=== PATIENT | male | born 1965 | race Hispanic/Latino ===

== ENCOUNTER 2020-06-05 13:30 | Inpatient (IN) | payer BC ==
--- NOTE | 2020-06-05 14:30 | RAD REPORT ---
EXAM DESCRIPTION: RAD - Chest Single View - 06/05/2020 2:22 pm CLINICAL HISTORY: COUGH Chest pain. COMPARISON: CHEST PA AND LAT 2 VIEW dated 08/11/2014; CHEST SINGLE VIEW dated 07/07/2014; CHEST SINGLE VIEW dated 01/03/2010 FINDINGS: Portable technique limits examination quality. Bilateral interstitial prominence is present, greater on the left, suspicious for viral infection or bronchitis. The heart is normal in size.
[2020-06-05 14:47] LABS: Hematocrit 41.5 % (39.6-49.0); MPV 10.3 fL (7.6-11.3); RBC Red Blood Cell Count 4.72 M/uL (4.33-5.43)
[2020-06-05 14:48] LABS: Basophils % 0.5 % (0-1.3)
[2020-06-05 14:51] LABS: Protime INR 1.07
[2020-06-05 15:02] LABS: ALT/SGPT 35 U/L (12-78); AST/SGOT 42 U/L (15-37); Alkaline Phosphatase 61 U/L (45-117); BUN Blood Urea Nitrogen 15 mg/dL (7-18); Bicarbonate 25 mmol/L (21-32); Bilirubin Direct 0.2 mg/dL (0-0.2); Bilirubin Total 0.5 mg/dL (0.2-1.0); Ferritin 926.8 ng/mL (26-388); Glucose Level 101 mg/dL (74-106); Lipase 207 U/L (73-393); Potassium 4.1 mmol/L (3.5-5.1); Protein, Total 7.6 g/dL (6.4-8.2); Sodium Level 132 mmol/L (136-145); Troponin (Emerg Dept Use Only) < 0.02 ng/mL (0.0-0.045)
[2020-06-05 15:16] LABS: Blood Morphology Comment NOT SEEN (NOT SEEN); Platelet Estimate DECR; White Blood Cell Scan OK (OK)
--- NOTE | 2020-06-05 15:39 | RAD REPORT ---
EXAM DESCRIPTION: CT - Chest For Pe Angio - 06/05/2020 3:30 pm CLINICAL HISTORY: Chest pain. DYSPNEA COMPARISON: CTANGIO CHEST FOR PE dated 07/28/2014; Chest Single View dated 06/05/2020 TECHNIQUE: CT angiogram of the pulmonary arteries was performed with MIP. All CT scans are performed using dose optimization technique as appropriate and may include automated exposure control or mA/KV adjustment according to patient size. FINDINGS: No evidence of pulmonary thromboembolism. No acute aortic finding demonstrated. The lungs are mildly emphysematous with moderate alveolar opacities greatest in the lower lobes likel y representing viral infection. No significant pericardial or pleural fluid. Small hiatal hernia. No concerning bony finding. IMPRESSION: No evidence of pulmonary thromboembolism. Alveolar opacities are present in both lungs peripherally in greatest in the lung bases likely relate d to viral infection.
[2020-06-05 16:32] LABS: SARS-COV-2 RT PCR POSITIVE (NEGATIVE)
--- NOTE | 2020-06-05 16:56 | ER ---
Nurse's Notes [facility] Name: Louis Alvares Age: 55 yrs Sex: Male : 1965 Arrival Date: 06/05/2020 Time: 13:36 Bed 7 Private MD: Diagnosis: Coronavirus infection, unspecified;Viral pneumonia, unspecified;hypoxia Presentation: 06/05 13:46 Chief complaint: Patient states: Cough, SOB, body aches, fatigue for 2 days. ll1 Coronavirus screen: Client denies travel out of the [place] in the last 14 days. cough unrelated to allergies, difficulty breathing, fatigue, Client presents with at least one sign or symptom that may indicate coronavirus-19. Standard/surgical mask placed on the client. Ebola Screen: Patient denies travel to an Ebola-affected area in the 21 days before illness onset. Initial Sepsis Screen: Does the patient meet any 2 criteria? No. Patient's initial sepsis screen is negative. Does the patient have a suspected source of infection? Yes: Productive cough/pneumonia. Risk Assessment: Do you want to hurt yourself or someone else? Patient reports no desire to harm self or others. Onset of symptoms was June 04, 2020. 13:46 Method Of Arrival: Ambulatory 1 13:46 Acuity: DELPHINE 2 ll1 14:01 Care prior to arrival: None. jl7 Historical: - Allergies: 13:50 No Known Drug Allergies; ll1 - PMHx: 13:50 High Cholesterol; Hypertension; ll1 - PSHx: 13:50 heart procedure-stent; ll1 - Immunization history:: Flu vaccine is not up to date. - Social history:: Smoking status: Patient/guardian denies using tobacco, Stopped _ months ago 6. Screenin:10 Abuse screen: Denies threats or abuse. Denies injuries from another. Nutritional hb screening: No deficits noted. Tuberculosis screening: No symptoms or risk factors identified. Fall Risk None identified. Assessment: 14:00 General: Appears in no apparent distress. uncomfortable, Behavior is calm, cooperative, jl7 appropriate for age. Pain: Denies pain. Neuro: Level of Consciousness is awake, alert, obeys commands, Oriented to person, place, time, situation. Cardiovascular: Rhythm is sinus rhythm. Respiratory: Airway is patent Respiratory effort is even, unlabored, Respiratory pattern is regular, symmetrical, Not auscultated. Derm: Skin is pink, warm \T\ dry. 15:00 Reassessment: Patient appears in no apparent distress at this time. No changes from hb previously documented assessment. Patient and/or family updated on plan of care and expected duration. Pain level reassessed. 16:00 Reassessment: Patient appears in no apparent distress at this time. No changes from hb previously documented assessment. Patient and/or family updated on plan of care and expected duration. Pain level reassessed. 17:32 Reassessment: Patient appears in no apparent distress at this time. No changes from hb previously documented assessment. Patient and/or family updated on plan of care and expected duration. Pain level reassessed. 18:28 Reassessment: Patient appears in no apparent distress at this time. No changes from hb previously documented assessment. Patient and/or family updated on plan of care and expected duration. Pain level reassessed. Vital Signs: 13:46 BP 130 / 77; Pulse 100; Resp 20; Temp 99.8; Pulse Ox 93% on R/A; Weight 83.91 kg; ll1 Height 5 ft. 5 in. (165.10 cm); Pain 7/10; 14:10 Pulse Ox 87% on R/A; hb 14:35 BP 106 / 66; Pulse 91; Resp 26; Pulse Ox 93% 2 lpm ; jl7 16:30 BP 104 / 66; Pulse 88; Resp 23; Pulse Ox 94% on 2 lpm NC; hb 17:20 BP 100 / 65; Pulse 83; Resp 25; Pulse Ox 94% on 2 lpm NC; hb 18:29 BP 112 / 66; Pulse 80; Resp 26; Pulse Ox 95% on 3 lpm NC; hb 19:20 BP 107 / 65; Pulse 95; Resp 18; Pulse Ox 100% on R/A; ea 13:46 Body Mass Index 30.79 (83.91 kg, 165.10 cm) ll1 13:46 o2 sat. 88-93% RA ll1 ED Course: 13:36 Patient arrived in ED. mr 13:49 Triage completed. ll1 13:51 Arm band placed on Patient placed in an exam room, on a stretcher. ll1 13:54 Stacey Saleem FNP-C is [facility]. kb 13:54 Narendra Self MD is Attending Physician. kb 14:00 Patient has correct armband on for positive identification. Placed in gown. Bed in low jl7 position. Call light in reach. Side rails up X 1. threat monitoring analyst on. Pulse ox on. NIBP on. 14:01 Jaguar Steele, RN is Primary Nurse. jl7 14:17 Chest Single View XRAY In Process Unspecified. EDMS 14:20 First set of blood cultures drawn by me, EKG done, by ED staff, reviewed by Stacey EVANS. 14:25 COVID swab sent to lab. jl7 14:28 Initial lab(s) drawn, by me, sent to lab. Second set of blood cultures drawn by me. jl7 14:30 Inserted saline lock: 20 gauge in right antecubital area, using aseptic technique. hb Blood collected. 15:30 CT Chest For PE Angio In Process Unspecified. EDMS 16:55 Ricardo Gonzalez MD is Hospitalizing Provider. kb 19:14 No provider procedures requiring assistance completed. Patient admitted, IV remains in ea place. 19:39 Primary Nurse role handed off by Jaguar Steele, RN mw2 Administered Medications: No medications were administered Outcome: 16:55 Decision to Hospitalize by Provider. kb 19:14 Condition: stable ea 19:14 Instructed on the need for admit, Demonstrated understanding of instructions, follow-up care. 19:44 Patient left the ED. mg2 Signatures: Dispatcher [employer] EDTN Stacey Saleem FNP-C FNP-Adilson Adrianne Cerrato Pilar Lopes, RN RN Jaguar Steele, RN [facility] [email or web address] Li Amaro RN RN Rosanna Arteaga mw2 Josue Davis RN RN mg2 Sonya Patterson RN RN ll1
--- NOTE | 2020-06-05 16:56 | EDPHYS ---
Physician Documentation [facility] Name: Louis Alvares Age: 55 yrs Sex: Male : 1965 Arrival Date: 06/05/2020 Time: 13:36 Bed 7 Private MD: ED Physician Narendra Self HPI: 06/05 17:03 This 55 yrs old Male presents to ER via Ambulatory with complaints of kb Shortness Of Breath. 17:03 The patient or guardian reports cough, that is intermittent, described as moderate, kb with no sputum, flu symptoms, low-grade fever, myalgias. Onset: The symptoms/episode began/occurred 3 day(s) ago. Severity of symptoms: At their worst the symptoms were moderate, in the emergency department the symptoms are unchanged. Modifying factors: The symptoms are alleviated by nothing, the symptoms are aggravated by nothing. Associated signs and symptoms: Pertinent positives: fever, Pertinent negatives: chest pain, diarrhea, ear ache, nausea, rhinorrhea, sore throat, vomiting. The patient has not experienced similar symptoms in the past. The patient has not recently seen a physician. Pt reports he was at work and the patient safety sitter made him come to the ER because he had covid symptoms. Pt reports cough, fever, chills and body aches for 3 days. . Historical: - Allergies: 13:50 No Known Drug Allergies; ll1 - PMHx: 13:50 High Cholesterol; Hypertension; ll1 - PSHx: 13:50 heart procedure-stent; ll1 - Immunization history:: Flu vaccine is not up to date. - Social history:: Smoking status: Patient/guardian denies using tobacco, Stopped _ months ago 6. ROS: 17:02 Cardiovascular: Negative for chest pain, palpitations, and edema, Abdomen/GI: Negative kb for abdominal pain, nausea, vomiting, diarrhea, and constipation, Back: Negative for injury and pain, MS/Extremity: Negative for injury and deformity, Skin: Negative for injury, rash, and discoloration, Neuro: Negative for headache, weakness, numbness, tingling, and seizure. 17:02 Constitutional: Positive for body aches, chills, fever, malaise. 17:02 Respiratory: Positive for cough. Exam: 17:03 Constitutional: This is a well developed, well nourished patient who is awake, alert, kb and in no acute distress. Head/Face: Normocephalic, atraumatic. Chest/axilla: Normal chest wall appearance and motion. Nontender with no deformity. No lesions are appreciated. Cardiovascular: Regular rate and rhythm with a normal S1 and S2. No gallops, murmurs, or rubs. Normal PMI, no JVD. No pulse deficits. Respiratory: Lungs have equal breath sounds bilaterally, clear to auscultation and percussion. No rales, rhonchi or wheezes noted. No increased work of breathing, no retractions or nasal flaring. Abdomen/GI: Soft, non-tender, with normal bowel sounds. No distension or tympany. No guarding or rebound. No evidence of tenderness throughout. Skin: Warm, dry with normal turgor. Normal color with no rashes, no lesions, and no evidence of cellulitis. MS/ Extremity: Pulses equal, no cyanosis. Neurovascular intact. Full, normal range of motion. Neuro: Awake and alert, GCS 15, oriented to person, place, time, and situation. Cranial nerves II-XII grossly intact. Motor strength 5/5 in all extremities. Sensory grossly intact. Cerebellar exam normal. Normal gait. Vital Signs: 13:46 BP 130 / 77; Pulse 100; Resp 20; Temp 99.8; Pulse Ox 93% on R/A; Weight 83.91 kg; ll1 Height 5 ft. 5 in. (165.10 cm); Pain 7/10; 14:10 Pulse Ox 87% on R/A; hb 14:35 BP 106 / 66; Pulse 91; Resp 26; Pulse Ox 93% 2 lpm ; jl7 16:30 BP 104 / 66; Pulse 88; Resp 23; Pulse Ox 94% on 2 lpm NC; hb 17:20 BP 100 / 65; Pulse 83; Resp 25; Pulse Ox 94% on 2 lpm NC; hb 18:29 BP 112 / 66; Pulse 80; Resp 26; Pulse Ox 95% on 3 lpm NC; hb 19:20 BP 107 / 65; Pulse 95; Resp 18; Pulse Ox 100% on R/A; ea 13:46 Body Mass Index 30.79 (83.91 kg, 165.10 cm) ll1 13:46 o2 sat. 88-93% RA ll1 MDM: 13:54 Patient medically screened. kb 16:59 Data reviewed: vital signs, nurses notes. Data interpreted: Pulse oximetry: on room air kb is 87 %. Interpretation: hypoxia. Plan: O2 by NC applied. Counseling: I had a detailed discussion with the patient and/or guardian regarding: the historical points, exam findings, and any diagnostic results supporting the discharge/admit diagnosis, lab results, radiology results, the need for further work-up and treatment in the hospital. Physician consultation: Ricardo Gonzalez MD was contacted at 17:00, regarding admission, to the telemetry unit. patient's condition, and will see patient in ED. 06/05 14:09 Order name: Flu kb 06/05 14:20 Order name: Troponin (emerg Dept Use Only) kb 06/05 14:20 Order name: Blood Culture Adult (2) kb 06/05 14:20 Order name: BMP kb 06/05 14:20 Order name: C-Reactive Protein kb 06/05 14:20 Order name: CBC with Diff kb 06/05 14:20 Order name: D-Dimer; Complete Time: 14:53 kb 06/05 14:20 Order name: Ferritin; Complete Time: 15:05 kb 06/05 14:20 Order name: Lactate; Complete Time: 15:05 kb 06/05 14:20 Order name: LFT's; Complete Time: 15:05 kb 06/05 14:20 Order name: Lipase; Complete Time: 15:05 kb 06/05 14:20 Order name: Procalcitonin; Complete Time: 16:08 kb 06/05 14:20 Order name: PT-INR; Complete Time: 14:53 kb 06/05 14:20 Order name: Ptt, Activated; Complete Time: 14:53 kb 06/05 14:20 Order name: Troponin (Emerg Dept Use Only); Complete Time: 15:05 EDMS 06/05 14:20 Order name: Blood Culture EDMS 06/05 14:20 Order name: Basic Metabolic Panel; Complete Time: 15:05 EDMS 06/05 14:20 Order name: C-Reactive Protein; Complete Time: 15:05 EDMS 06/05 14:20 Order name: CBC with Automated Diff; Complete Time: 15:24 EDMS 06/05 14:40 Order name: Glucose, Ancillary Testing EDMS 02/12 15:16 Order name: CBC Smear Scan; Complete Time: 15:24 EDID 06/05 16:32 Order name: COVID-19/FLU A+B; Complete Time: 16:37 EDID 06/05 17:05 Order name: C-Reactive Protein EDID 06/05 17:05 Order name: C-Reactive Protein EDID 06/05 17:05 Order name: CBC with Automated Diff EDID 06/05 17:05 Order name: CBC with Automated Diff EDID 06/05 17:05 Order name: Comprehensive Metabolic Panel EDID 06/05 17:05 Order name: Comprehensive Metabolic Panel EDID 06/05 17:05 Order name: Ferritin EDID 06/05 14:09 Order name: Chest Single View XRAY; Complete Time: 14:32 kb 06/05 14:20 Order name: EKG; Complete Time: 14:21 kb 06/05 14:20 Order name: Cardiac monitoring; Complete Time: 14:34 kb 06/05 14:20 Order name: Droplet/Contact Precautions; Complete Time: 14:34 kb 06/05 14:20 Order name: EKG - Nurse/Tech; Complete Time: 14:34 kb 06/05 14:20 Order name: IV Start; Complete Time: 14:34 kb 06/05 14:20 Order name: Labs collected and sent; Complete Time: 14:35 kb 06/05 14:20 Order name: O2 Per Protocol; Complete Time: 14:35 kb 06/05 14:20 Order name: O2 Sat Monitoring; Complete Time: 14:35 kb 06/05 14:55 Order name: CT Chest For PE Angio; Complete Time: 15:50 kb 06/05 17:05 Order name: CONS Pharmacy Consult [facility] 06/05 17:05 Order name: Heart Healthy EDID 06/05 17:05 Order name: Ferritin EDID 06/05 17:05 Order name: Lipid Profile EDID 06/05 17:05 Order name: Lipid Profile [facility] Administered Medications: No medications were administered Disposition: 06/05/20 16:55 Hospitalization ordered by Ricardo Gonzalez for Observation. Preliminary diagnosis are Coronavirus infection, unspecified, Viral pneumonia, unspecified, hypoxia. - Bed requested for Telemetry/MedSurg (observation). - Status is Observation. mg2 - Condition is Stable. - Problem is new. - Symptoms are unchanged. Addendum: 06/07/2020 14:34 Co-signature as Attending Physician, Narendra Self MD I agree with the assessment and k dr plan of care. Signatures: Dispatcher [employer] EDID Stacey Saleem, LEIF-Aureliano PHYSICAL ANTHROPOLOGIST-CkDolly Fu, RN RN dw Narendra Self MD MD [facility] Josue Davis RN RN mg2 Sonya Patterson RN RN ll1 Corrections: (The following items were deleted from the chart) 06/05 15:31 14:10 CORONAVIRUS+MR.LAB.BRZ ordered. [facility] EDID 18:22 16:55 Hospitalization Ordered by Ricardo Gonzalez MD for Observation. Preliminary dw diagnosis is Coronavirus infection, unspecified; Viral pneumonia, unspecified; hypoxia. Bed requested for Telemetry/MedSurg (observation). Status is Observation. Condition is Stable. Problem is new. Symptoms are unchanged. kb 19:44 18:22 06/05/2020 16:55 Hospitalization Ordered by Ricardo Gonzalez MD for Observation. mg2 Preliminary diagnosis is Coronavirus infection, unspecified; Viral pneumonia, unspecified; hypoxia. Bed requested for Telemetry/MedSurg (observation). Status is Observation. Condition is Stable. Problem is new. Symptoms are unchanged. dw
[2020-06-05] MEDS ORDERED: ACETAMINOPHEN 500 MG TAB PO PRN (16:58)
[2020-06-05] MEDS ORDERED: MORPHINE 2 MG/ML SYR IV PRN (16:58)
[2020-06-05] MEDS ORDERED: ONDANSETRON 4 MG/2 ML VIAL IV PRN (16:58)
[2020-06-05 20:45] VITALS: BMI 33.0
[2020-06-05] MEDS: ATORVASTATIN 80 MG TAB PO SCH (21:45)
[2020-06-05] MEDS: NA CHLORIDE 0.9% 1,000 ML IV SCH (21:45)
[2020-06-05] MEDS: APIXABAN 5 MG TABLET PO SCH (21:46)
[2020-06-05] MEDS: carvediloL 3.125 MG TAB PO SCH (21:46)
[2020-06-06] MEDS: METHYLPREDNISOLONE 125 MG INJ IV SCH ×3 (00:56→16:16)
[2020-06-06 04:09] LABS: Absolute Lymphocytes (CBC) 0.7 K/uL (0.7-4.9); Basophils % 0.3 % (0-1.3); Lymphocytes % 9.4 % (15.3-44.8); MPV 9.9 fL (7.6-11.3); RBC Red Blood Cell Count 4.61 M/uL (4.33-5.43)
[2020-06-06 04:57] LABS: ALT/SGPT 29 U/L (12-78); AST/SGOT 41 U/L (15-37); Albumin 2.7 g/dL (3.4-5.0); Alkaline Phosphatase 59 U/L (45-117); BUN Blood Urea Nitrogen 14 mg/dL (7-18); Bicarbonate 24 mmol/L (21-32); Bilirubin Total 0.6 mg/dL (0.2-1.0); Ferritin 1108.4 ng/mL (26-388); Glucose Level 100 mg/dL (74-106); HDL Cholesterol 40 mg/dL (40-60); LDL Cholesterol, Calculated 104 (<130); Potassium 4.7 mmol/L (3.5-5.1); Protein, Total 7.3 g/dL (6.4-8.2); Sodium Level 136 mmol/L (136-145)
[2020-06-06] MEDS: APIXABAN 5 MG TABLET PO SCH (08:12)
[2020-06-06] MEDS: ASPIRIN EC 81 MG TAB PO SCH (08:13)
[2020-06-06] MEDS: CLOPIDOGREL 75 MG TABLET PO SCH (08:13)
[2020-06-06] MEDS: lisinopriL 5 MG TAB PO SCH (08:13)
[2020-06-06] MEDS: carvediloL 3.125 MG TAB PO SCH ×2 (08:13→20:58)
[2020-06-06] MEDS: NA CHLORIDE 0.9% 1,000 ML IV SCH (08:14)
--- NOTE | 2020-06-06 09:14 | P.HP ---
Certification for Inpatient Patient admitted to: Inpatient With expected LOS: >2 Midnights Patient will require the following post-hospital care: None Practitioner: I am a practitioner with admitting privileges, knowledge of patient current condition, hospital course, and medical plan of care. Services: Services provided to patient in accordance with Admission requirements found in Title 42 Section 412.3 of the Code of Federal Regulations Patient History Date of Service: 06/05/20 Reason for admission: Hypoxemia History of Present Illness: Patient is a 55-year-old gentleman who came to the hospital with from his work because he was having upper respiratory symptoms. They wanted him to go to the emergency room. In the emergency room he was found have COVID-19 pneumonia. Patient was admitted to the hospital for further treatment as is room her oxygenation was 80% on room air. On 2 L he has gone up to 95%. He did have a CT PE protocol which was negative for pulmonary embolism but did show diffuse infiltrates. Patient will be admitted to the hospital for further evaluation. Allergies No Known Drug Allergies Allergy (Verified 07/28/14 06:24) Unknown Home Medications: Aspirin [Aspirin EC 81 MG] 81 mg PO DAILY 07/28/14 Atorvastatin Calcium [Lipitor] 80 mg PO BEDTIME 07/28/14 Clopidogrel Bisulfate [Plavix] 75 mg PO DAILY 07/28/14 carvediloL [Coreg*] 3.125 mg PO BID 07/28/14 lisinopriL [Prinivil*] 5 mg PO DAILY 07/28/14 Azithromycin [Zithromax] 500 mg PO DAILY #7 tablet 07/29/14 Fluticasone/Salmeterol [Advair 250/50 Diskus] 1 puff IH BID #1 disk 07/29/14 predniSONE [Deltasone] 10 mg PO BID #20 tab 07/29/14 - Past Medical/Surgical History Diabetic: No -: Hypertension Past Surgical History: Patient denies surgical history - Family History Mother Medical History: Heart disease, Cancer Father Medical History: Heart disease, Hypertension, Diabetes - Social History Smoking Status: Former smoker Alcohol use: No CD- Drugs: No Caffeine use: Yes Place of Residence: Home Review of Systems 10-point ROS is otherwise unremarkable Physical Examination - Vital Signs Temperature: 97.3 F Blood Pressure: 90/62 Pulse: 72 Respirations: 16 Pulse Ox (%): 96 - Physical Exam General: Alert, In no apparent distress, Oriented x3 HEENT: Atraumatic, PERRLA, Mucous membr. moist/pink, EOMI, Sclerae nonicteric Neck: Supple, 2+ carotid pulse no bruit, No LAD, Without JVD or thyroid abnormality Respiratory: Diminished, Rhonchi/gurgles Cardiovascular: Regular rate/rhythm, Normal S1 S2, No murmurs Gastrointestinal: Normal bowel sounds, Soft and benign, Non-distended, No tenderness Musculoskeletal: No clubbing, No swelling, No tenderness Integumentary: No rashes Neurological: Normal gait, Normal speech, Normal strength at 5/5 x4 extr, Normal tone, Sensation intact, Cranial nerves 3-12 intact, Normal affect Lymphatics: No axilla or inguinal lymphadenopathy - Studies Laboratory Data (last 24 hrs) 06/05/20 14:29: PT 12.3, INR 1.07, APTT 26.6 06/05/20 14:29: WBC 6.30, Hgb 13.9, Hct 41.5, Plt Count 66 L 06/05/20 14:29: Sodium 132 L, Potassium 4.1, BUN 15, Creatinine 0.91, Glucose 101, Total Bilirubin 0.5, AST 42 H, ALT 35, Alkaline Phosphatase 61, Lipase 207 Assessment & Plan - Problems (Diagnosis) (1) Pneumonia due to COVID-19 virus Current Visit: Yes Status: Acute (2) Hypoxemia Current Visit: Yes Status: Acute (3) History of hypertension Current Visit: Yes Status: Acute - Plan 1. Continue with IV steroids 2. Check room air oxygenation daily 3. Repeat labs including D-dimer, ferritin, and CRP and LFTs 4. O2 per protocol 5. Continue with albuterol inhaler therapy; IV dexamethasone; zinc and vitamin-C 6. O2 per protocol 7. GI and DVT prophylaxis Discharge Plan: Home Plan to discharge in: Greater than 2 days - Advance Directives Does patient have a Living Will: No Does patient have a Durable POA for Healthcare: No - Code Status/Comfort Care Code Status Assessed: Yes Code Status: Full Code Critical Care: No Time Spent Managing PTS Care (In Minutes): 45
--- NOTE | 2020-06-06 09:18 | P.PN ---
Subjective Date of Service: 06/05/20 Patient is clinically doing better. Will arrange for a room air oxygen monitoring and then arrange for home oxygen prior to discharging possibly today or tomorrow Review of Systems 10-point ROS is otherwise unremarkable Physical Examination - Vital Signs Temperature: 97.3 F Blood Pressure: 90/62 Pulse: 72 Respirations: 16 Pulse Ox (%): 96 - Physical Exam General: Alert, In no apparent distress HEENT: Atraumatic, PERRLA, EOMI Neck: Supple, JVD not distended Respiratory: Clear to auscultation bilaterally, Normal air movement Cardiovascular: Regular rate/rhythm, Normal S1 S2 Gastrointestinal: Normal bowel sounds, No tenderness Musculoskeletal: No tenderness Integumentary: No rashes Neurological: Normal speech, Normal tone, Normal affect Lymphatics: No axilla or inguinal lymphadenopathy - Studies Laboratory Data (last 24 hrs) 06/05/20 14:29: PT 12.3, INR 1.07, APTT 26.6 06/05/20 14:29: WBC 6.30, Hgb 13.9, Hct 41.5, Plt Count 66 L 06/05/20 14:29: Sodium 132 L, Potassium 4.1, BUN 15, Creatinine 0.91, Glucose 101, Total Bilirubin 0.5, AST 42 H, ALT 35, Alkaline Phosphatase 61, Lipase 207 Medications List Reviewed: Yes Assessment & Plan - Problems (Diagnosis) (1) Pneumonia due to COVID-19 virus Current Visit: Yes Status: Acute (2) Hypoxemia Current Visit: Yes Status: Acute (3) History of hypertension Current Visit: Yes Status: Acute - Plan 1. Continue with IV steroids 2. Check room air oxygenation daily 3. Repeat labs including D-dimer, ferritin, and CRP and LFTs 4. O2 per protocol 5. Continue with albuterol inhaler therapy; IV dexamethasone; zinc and vitamin-C 6. O2 per protocol 7. GI and DVT prophylaxis - Advance Directives Does patient have a Living Will: No Does patient have a Durable POA for Healthcare: No - Code Status/Comfort Care Code Status: Full Code
[2020-06-06] MEDS: ATORVASTATIN 80 MG TAB PO SCH (20:58)
[2020-06-07] MEDS: NA CHLORIDE 0.9% 1,000 ML IV SCH ×2 (00:13→11:01)
[2020-06-07] MEDS: METHYLPREDNISOLONE 125 MG INJ IV SCH ×3 (00:14→17:18)
--- NOTE | 2020-06-07 07:55 | EKG ---
Test Date: 2020-06-05 Test Time: 14:28:10 Laryngologist: JESSE MEASUREMENT RESULTS: Intervals: Rate: 91 TN: 134 QRSD: 90 QT: 340 QTc: 418 Sperry: P: 35 TN: 134 QRS: 249 T: 34 INTERPRETIVE STATEMENTS: Normal sinus rhythm Right superior axis deviation Low voltage QRS Cannot rule out Anteroseptal infarct, age undetermined Abnormal ECG Compared to ECG 07/27/2014 23:50:23 Right superior axis now present Low QRS voltage now present T-wave abnormality no longer present Possible ischemia no longer present Myocardial infarct finding still present Electronically Signed On 06-07-20 07:53:16 BUNDLER by Segundo Rivera
[2020-06-07 08:34] VITALS: O2SAT 90
[2020-06-07] MEDS: lisinopriL 5 MG TAB PO SCH (08:36)
[2020-06-07] MEDS: CLOPIDOGREL 75 MG TABLET PO SCH (08:36)
[2020-06-07] MEDS: carvediloL 3.125 MG TAB PO SCH (08:36)
[2020-06-07] MEDS: ASPIRIN EC 81 MG TAB PO SCH (08:36)
[2020-06-07 15:03] LABS: Absolute Lymphocytes (CBC) 1.1 K/uL (0.7-4.9); Basophils % 0.1 % (0-1.3); Hematocrit 40.9 % (39.6-49.0); Lymphocytes % 8.1 % (15.3-44.8); MPV 10.9 fL (7.6-11.3); RBC Red Blood Cell Count 4.59 M/uL (4.33-5.43)
[2020-06-07 15:28] LABS: BUN Blood Urea Nitrogen 19 mg/dL (7-18); Bicarbonate 23 mmol/L (21-32); Glucose Level 194 mg/dL (74-106); Potassium 4.4 mmol/L (3.5-5.1); Sodium Level 139 mmol/L (136-145)
[2020-06-22 05:53] VITALS: BP 90/62; TEMP 97.3
--- NOTE | 2020-06-22 05:53 | P.DS ---
Discharge Date: 06/07/20 Disposition: ROUTINE DISCHARGE Discharge Condition: GOOD Reason for Admission: Hypoxemia Consultations: Pulmonary - Problems (1) Pneumonia due to COVID-19 virus Status: Acute (2) Hypoxemia Status: Acute (3) History of hypertension Status: Acute Brief History of Present Illness: Patient is a 55-year-old gentleman who came to the hospital with from his work because he was having upper respiratory symptoms. They wanted him to go to the emergency room. In the emergency room he was found have COVID-19 pneumonia. Patient was admitted to the hospital for further treatment as is room her oxygenation was 80% on room air. On 2 L he has gone up to 95%. He did have a CT PE protocol which was negative for pulmonary embolism but did show diffuse infiltrates. Patient will be admitted to the hospital for further evaluation. Hospital Course: Patient was admitted to the hospital over the last 4-5 days. Patient is clinically doing better. At this time, patient is stable for discharge on prednisone, azithromycin, inhaler therapy, and cough medication. Follow with pulmonary in 1-2 weeks. Vital Signs/Physical Exam: Temp Pulse Resp BP Pulse Ox 98 F 57 20 102/60 92 06/07/20 12:00 06/07/20 12:00 06/07/20 12:00 06/07/20 12:00 06/07/20 12:00 General: Alert, In no apparent distress, Oriented x3 Laboratory Data at Discharge: WBC 13.10 K/uL (4.3-10.9) H D 06/07/20 14:43 Hgb 13.3 g/dL (13.6-17.9) L 06/07/20 14:43 Hct 40.9 % (39.6-49.0) 06/07/20 14:43 Plt Count 125 K/uL (152-406) L D 06/07/20 14:43 PT 12.3 SECONDS (9.5-12.5) 06/05/20 14:29 INR 1.07 06/05/20 14:29 APTT 26.6 SECONDS (24.3-36.9) 06/05/20 14:29 Sodium 139 mmol/L (136-145) 06/07/20 14:43 Potassium 4.4 mmol/L (3.5-5.1) 06/07/20 14:43 BUN 19 mg/dL (7-18) H 06/07/20 14:43 Creatinine 0.83 mg/dL (0.55-1.3) 06/07/20 14:43 Glucose 194 mg/dL (74-106) H 06/07/20 14:43 Total Bilirubin 0.6 mg/dL (0.2-1.0) 06/06/20 03:49 AST 41 U/L (15-37) H 06/06/20 03:49 ALT 29 U/L (12-78) 06/06/20 03:49 Alkaline Phosphatase 59 U/L (45-117) 06/06/20 03:49 Triglycerides 186 mg/dL (<150) H 06/06/20 03:49 Cholesterol 181 mg/dL (<200) 06/06/20 03:49 HDL Cholesterol 40 mg/dL (40-60) 06/06/20 03:49 Cholesterol/HDL Ratio 4.53 06/06/20 03:49 Lipase 207 U/L (73-393) 06/05/20 14:29 Home Medications: Aspirin [Aspirin EC 81 MG] 81 mg PO DAILY 07/28/14 Atorvastatin Calcium [Lipitor] 80 mg PO BEDTIME 07/28/14 Clopidogrel Bisulfate [Plavix] 75 mg PO DAILY 07/28/14 carvediloL [Coreg*] 3.125 mg PO BID 07/28/14 lisinopriL [Prinivil*] 5 mg PO DAILY 07/28/14 Azithromycin [Zithromax] 500 mg PO DAILY #7 tablet 07/29/14 Fluticasone/Salmeterol [Advair 250/50 Diskus*] 1 puff IH BID #1 disk 07/29/14 predniSONE [Prednisone*] 20 mg PO BID #18 tab 06/06/20 Albuterol Inhaler [Ventolin Inhaler*] 2 puff IH Q6H PRN #1 hfa.aer.ad 06/07/20 Benzonatate [Tessalon Perle] 200 mg PO TID PRN #30 cap 06/07/20 Ivermectin 3 mg PO DAILY #12 tablet 06/07/20 New Medications: Ivermectin 3 mg PO DAILY #12 tablet predniSONE [Prednisone*] 20 mg PO BID #18 tab Benzonatate [Tessalon Perle] 200 mg PO TID PRN #30 cap PRN Reason: Cough Albuterol Inhaler [Ventolin Inhaler*] 2 puff IH Q6H PRN #1 hfa.aer.ad PRN Reason: Shortness Of Breath Diet: Regular Activity: Fall precautions Followup: Darian Soriano MD [ACTIVE - CAN ADMIT] - 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
== END 2020-06-07 17:42 | disposition home or self-care (01) | DRG 177 ==
LOC: ER 13:30 → ERHOLD 17:17 → 4TH 19:37
PROVIDERS: ADMIT Hospitalist; ATTEND Hospitalist
DX: U07.1 COVID-19 (principal); J12.82 Pneumonia due to coronavirus disease 2019; I10 Essential (primary) hypertension; Z95.5 Presence of coronary angioplasty implant and graft; Z79.82 Long term (current) use of aspirin; Z79.02 Long term (current) use of antithrombotics/antiplatelets; Z79.52 Long term (current) use of systemic steroids; Z79.899 Other long term (current) drug therapy; Z87.891 Personal history of nicotine dependence
CPT/HCPCS: 0240U; 36415; 71045; 71275; 80048; 80053; 80061; 80076; 82728; 82947; 83605; 83690; 84145; 84484; 85025; 85379; 85610; 85730; 86140; 87040; 93005; 99284; J2930; J7030; Q9967

== ENCOUNTER 2020-08-30 18:55 | Inpatient (IN) | payer BC ==
[2020-08-30] MEDS ORDERED: NA CHLORIDE 0.9% 1,000 ML ONE (20:58)
[2020-08-30] MEDS ORDERED: ONDANSETRON 4 MG/2 ML VIAL ONE (20:58)
[2020-08-30] MEDS ORDERED: MORPHINE 4 MG/ML SYR ONE ×2 (20:58→23:52)
[2020-08-30 21:08] LABS: Absolute Lymphocytes (CBC) 1.8 K/uL (0.7-4.9); Basophils % 0.8 % (0-1.3); Hematocrit 39.6 % (39.6-49.0); Lymphocytes % 13.1 % (15.3-44.8); MPV 8.8 fL (7.6-11.3); RBC Red Blood Cell Count 4.55 M/uL (4.33-5.43)
[2020-08-30 21:20] LABS: ALT/SGPT 32 U/L (12-78); AST/SGOT 18 U/L (15-37); Albumin 3.9 g/dL (3.4-5.0); Alkaline Phosphatase 93 U/L (45-117); BUN Blood Urea Nitrogen 14 mg/dL (7-18); Bicarbonate 27 mmol/L (21-32); Bilirubin Direct 0.1 mg/dL (0-0.2); Bilirubin Total 0.4 mg/dL (0.2-1.0); Glucose Level 131 mg/dL (74-106); Lipase 75 U/L (73-393); Protein, Total 7.9 g/dL (6.4-8.2); Sodium Level 141 mmol/L (136-145)
--- NOTE | 2020-08-30 23:19 | EDPHYS ---
Physician Documentation [facility] Name: Louis Alvares Age: 55 yrs Sex: Male : 1965 Arrival Date: 08/30/2020 Time: 18:56 Bed 26 Private MD: ED Physician Rubio Castro Historical: - Allergies: 08/30 19:55 No Known Allergies; bp - Home Meds: 19:55 None [Active]; bp - PMHx: 19:55 High Cholesterol; Hypertension; [place]; bp - PSHx: 19:55 left hand; heart procedure-stent; bp - Immunization history:: Adult Immunizations up to date. - Social history:: Smoking status: Patient reports the use of cigarette tobacco products, smokes one pack cigarettes per day. Patient/guardian denies using alcohol, street drugs. Vital Signs: 19:53 BP 114 / 76; Pulse 86; Resp 16; Temp 98.3(TE); Pulse Ox 95% on R/A; Weight 83.91 kg bp (R); Height 5 ft. 0 in. (152.40 cm) (R); Pain 10/10; 20:30 BP 108 / 71; Pulse 81; Resp 18; Pulse Ox 97% on R/A; Pain 9/10; lp1 21:30 BP 113 / 76; Pulse 81; Resp 18; Pulse Ox 97% on R/A; lp1 22:30 BP 124 / 84; Pulse 80; Resp 18; Pulse Ox 97% on R/A; lp1 23:30 BP 143 / 83; Pulse 85; Resp 18; Pulse Ox 97% on R/A; lp1 05 00:30 BP 118 / 84; Pulse 91; Resp 18; Pulse Ox 96% on R/A; lp1 01:30 BP 116 / 72; Pulse 90; Resp 18; Temp 99.5(O); Pulse Ox 96% on R/A; lp1 08/30 19:53 Body Mass Index 36.13 (83.91 kg, 152.40 cm) bp MDM: 08/30 22:53 Patient medically screened. 08/30 20:23 Order name: Basic Metabolic Panel 08/30 20:23 Order name: CBC with Diff 08/30 20:23 Order name: Hepatic Function 08/30 20:23 Order name: Lipase tw4 08/30 20:24 Order name: Basic Metabolic Panel; Complete Time: 23:22 EDMS 08/30 23:22 Interpretation: Normal except: CL 108; GLUC 131. tw4 08/30 20:24 Order name: Liver (Hepatic) Function; Complete Time: 23:22 EDMS 08/30 23:23 Interpretation: Normal except: GLOB 4.0; A/G 1.0. 4 08/30 20:24 Order name: CBC with Automated Diff; Complete Time: 23:22 EDMS 08/30 23:24 Interpretation: Normal except: WBC 13.30; HGB 13.2. tw4 08/30 20:24 Order name: Lipase; Complete Time: 23:22 EDMS 08/30 23:24 Interpretation: Within normal limits: LIP 75. 4 08/30 21:30 Order name: CT Abd/Pelvis - IV Contrast Only [facility] 08/30 23:31 Order name: COVID-19 : Document "Date of Symptom Onset" if Symptomatic. [facility] 08/31 01:26 Order name: SARS-COV-2 RT PCR [facility] 08/30 20:23 Order name: IV Saline Lock; Complete Time: 20:54 tw4 08/30 20:23 Order name: Labs collected and sent; Complete Time: 20:54 tw4 Administered Medications: 20:45 Drug: NS 0.9% 1000 ml Route: IV; Rate: 1000 ml; Site: right antecubital; lp1 22:00 Follow up: IV Status: Completed infusion; IV Intake: 1000ml lp1 20:45 Drug: Zofran (Ondansetron) 4 mg Route: IVP; Site: right antecubital; lp1 21:30 Follow up: Response: No adverse reaction lp1 20:45 Drug: morphine 4 mg Route: IVP; Site: right antecubital; lp1 21:30 Follow up: Response: Pain is decreased lp1 23:35 Drug: morphine 4 mg Route: IVP; Site: right antecubital; lp1 08/31 00:47 Follow up: Response: Pain is decreased lp1 08/30 23:35 Drug: Zosyn (piperacillin-tazobactam) 3.375 grams Route: IVPB; Infused Over: 60 mins; lp1 Site: right antecubital; 08/31 00:47 Follow up: IV Status: Completed infusion; IV Intake: 100ml lp1 Disposition: 08/30/20 23:18 Hospitalization ordered by Gene Capellan for Inpatient Admission. Preliminary diagnosis is Acute appendicitis with generalized peritonitis. - Bed requested for [facility] ER HOLD. - Status is Inpatient Admission. aa5 - Condition is Stable. - Problem is new. - Symptoms have improved. Addendum: 09/23/2020 18:38 Addendum: HPI: Pt is a 55 year old male with no significant past medical history comes t w4 to the Ed with compliant of abdominal pain. Pt states that he has had pain in the right side of his abdomen for one hour. pt complains of nausea but no vomiting. Pt denies CP,SOB fever cough chills. Addendum: ROS:Abdomen: Positive for abdominal pain and nausea negative for diarrhea, rectal bleeding Constitutional: neg for fever chills, HEENT: neg sore throat, eye pain visual changes CV: negative for CP HUERTA palpitations all others systems negative except as marked. Addendum: PE: General well developed well nourished male in mild distress and obvious pain HEENT; PEERLA, EOMI Resp: CTA no resp distress CV: RRR, nl S1 S2 Abdomen: tender to palpitation to RLQ no rebound no guarding Ext: nontender no edema. Signatures: Dispatcher [employer] EDMS Billie Butler, RN RN aa5 Dora Vu RN RN lp1 Calin Pak, RN RN Rubio Govea MD MD tw4 Rosanna Arteaga mw2 Corrections: (The following items were deleted from the chart) 08/31 01:32 08/30 23:18 Hospitalization Ordered by Gene Capellna MD for Inpatient Admission. mw2 Preliminary diagnosis is Acute appendicitis with generalized peritonitis. Bed requested for Telemetry/MedSurg (Inpatient). Status is Inpatient Admission. Condition is Stable. Problem is new. Symptoms have improved. 4 08/31 15:55 01:32 08/30/2020 23:18 Hospitalization Ordered by Gene Capellan MD for Inpatient aa5 Admission. Preliminary diagnosis is Acute appendicitis with generalized peritonitis. Bed requested for [facility] ER HOLD. Status is Inpatient Admission. Condition is Stable. Problem is new. Symptoms have improved. mw2
--- NOTE | 2020-08-30 23:19 | ER ---
Nurse's Notes [facility] Name: Louis Alvares Age: 55 yrs Sex: Male : 1965 Arrival Date: 08/30/2020 Time: 18:56 Bed 26 Private MD: Diagnosis: Acute appendicitis with generalized peritonitis Presentation: 08/30 19:53 Chief complaint: Patient states: About an hour ago, I had a strong sudden pain in the bp right lower stomach. It feels like I have a swollen sack in my abdomen. Now it feel like it is spreading through out my stomach. Coronavirus screen: Client denies travel out of the [place] in the last 14 days. At this time, the client does not indicate any symptoms associated with coronavirus-19. Ebola Screen: No symptoms or risks identified at this time. Initial Sepsis Screen: Does the patient meet any 2 criteria? No. Patient's initial sepsis screen is negative. Does the patient have a suspected source of infection? Yes: Acute abdominal pain. Risk Assessment: Do you want to hurt yourself or someone else? Patient reports no desire to harm self or others. Onset of symptoms was August 30, 2020. Transition of care: patient was not received from another setting of care. 19:53 Method Of Arrival: Wheelchair bp 19:53 Acuity: DELPHINE 2 jb4 Historical: - Allergies: 19:55 No Known Allergies; bp - Home Meds: 19:55 None [Active]; bp - PMHx: 19:55 High Cholesterol; Hypertension; [place]; bp - PSHx: 19:55 left hand; heart procedure-stent; bp - Immunization history:: Adult Immunizations up to date. - Social history:: Smoking status: Patient reports the use of cigarette tobacco products, smokes one pack cigarettes per day. Patient/guardian denies using alcohol, street drugs. Screenin:04 Abuse screen: Denies threats or abuse. Denies injuries from another. Nutritional lp1 screening: No deficits noted. Tuberculosis screening: No symptoms or risk factors identified. Fall Risk None identified. Assessment: 20:30 General: Appears uncomfortable, Behavior is appropriate for age. Pain: Complains of lp1 pain in right lower quadrant Pain currently is 9 out of 10 on a pain scale. Quality of pain is described as sharp. Neuro: Level of Consciousness is awake, alert, obeys commands, Oriented to person, place, time, situation. Cardiovascular: Patient's skin is warm and dry. Respiratory: Respiratory effort is even. GI: Abdomen is round Bowel sounds present X 4 quads. Abdomen is tender to palpation in right lower quadrant Reports lower abdominal pain, Patient currently denies diarrhea, vomiting. : No signs and/or symptoms were reported regarding the genitourinary system. Denies burning with urination. EENT: No signs and/or symptoms were reported regarding the EENT system. Derm: Skin is intact, Skin is dry, Skin is normal. Musculoskeletal: No deficits noted. 20:45 Reassessment: Verbal order for NS 1L IV, Morphine 4mg IV, Zofran 4mg IV now. lp1 21:30 Reassessment: Patient reports decrease in pain at this time. lp1 22:30 Reassessment: Patient aware of pending CT results; Reports minimal abdominal pain at lp1 this time. 23:30 Reassessment: Patient is alert, oriented x 3, equal unlabored respirations, skin lp1 warm/dry/pink. Patient reports pain 8/10 on pain scale to RLQ abdomen; Patient aware of plan for admission. 08/31 01:00 Reassessment: Patient resting, eyes closed, respirations even, unlabored;. lp1 Vital Signs: 08/30 19:53 BP 114 / 76; Pulse 86; Resp 16; Temp 98.3(TE); Pulse Ox 95% on R/A; Weight 83.91 kg bp (R); Height 5 ft. 0 in. (152.40 cm) (R); Pain 10/10; 20:30 BP 108 / 71; Pulse 81; Resp 18; Pulse Ox 97% on R/A; Pain 9/10; lp1 21:30 BP 113 / 76; Pulse 81; Resp 18; Pulse Ox 97% on R/A; lp1 22:30 BP 124 / 84; Pulse 80; Resp 18; Pulse Ox 97% on R/A; lp1 23:30 BP 143 / 83; Pulse 85; Resp 18; Pulse Ox 97% on R/A; lp1 08/31 00:30 BP 118 / 84; Pulse 91; Resp 18; Pulse Ox 96% on R/A; lp1 01:30 BP 116 / 72; Pulse 90; Resp 18; Temp 99.5(O); Pulse Ox 96% on R/A; lp1 08/30 19:53 Body Mass Index 36.13 (83.91 kg, 152.40 cm) bp ED Course: 08/30 18:56 Patient arrived in ED. ds1 19:55 Triage completed. bp 19:55 Arm band placed on right wrist. bp 20:24 Rubio Castro MD is Attending Physician. tw4 20:29 Dora Vu RN is Primary Nurse. lp1 20:45 Inserted saline lock: 20 gauge in right antecubital area, using aseptic technique. lp1 Blood collected. 21:04 Patient has correct armband on for positive identification. Placed in gown. Bed in low lp1 position. Call light in reach. Pulse ox on. NIBP on. 22:25 CT Abd/Pelvis - IV Contrast Only In Process Unspecified. EDMS 23:18 Gene Capellan MD is Hospitalizing Provider. tw4 08/31 00:38 No provider procedures requiring assistance completed. Patient admitted, IV remains in lp1 place. Administered Medications: 08/30 20:45 Drug: NS 0.9% 1000 ml Route: IV; Rate: 1000 ml; Site: right antecubital; lp1 22:00 Follow up: IV Status: Completed infusion; IV Intake: 1000ml lp1 20:45 Drug: Zofran (Ondansetron) 4 mg Route: IVP; Site: right antecubital; lp1 21:30 Follow up: Response: No adverse reaction lp1 20:45 Drug: morphine 4 mg Route: IVP; Site: right antecubital; lp1 21:30 Follow up: Response: Pain is decreased lp1 23:35 Drug: morphine 4 mg Route: IVP; Site: right antecubital; lp1 08/31 00:47 Follow up: Response: Pain is decreased lp1 08/30 23:35 Drug: Zosyn (piperacillin-tazobactam) 3.375 grams Route: IVPB; Infused Over: 60 mins; lp1 Site: right antecubital; 08/31 00:47 Follow up: IV Status: Completed infusion; IV Intake: 100ml lp1 Intake: 08/30 22:00 IV: 1000ml; Total: 1000ml. lp1 08/31 00:47 IV: 100ml; Total: 1100ml. lp1 Outcome: 08/30 23:18 Decision to Hospitalize by Provider. tw4 08/31 00:38 Condition: stable lp1 Instructed on the need for admit. 02:00 Admitted to Report called to [facility] lp1 15:55 Patient left the ED. aa5 Signatures: Dispatcher [employer] EDNH Yaritza Espino ds1 Billie Butler RN RN aa5 Dora Vu RN RN lp1 Gene Way RN RN jb4 Calin Pak RN RN Rubio Govea MD MD tw4 Corrections: (The following items were deleted from the chart) 08/30 20:16 19:53 Acuity: DELPHINE 3 bp jb4 08/31 00:39 08/30 23:30 Reassessment: Patient is alert, oriented x 3, equal unlabored respirations, lp1 skin warm/dry/pink. Patient reports pain 8/10 on pain scale to RLQ abdomen lp1
[2020-08-30] MEDS ORDERED: PIPER/TAZO/NS 3.375gm 3.375 GM/100 ML BAG ONE (23:52)
[2020-08-31 02:13] VITALS: BMI 33.5
[2020-08-31] MEDS ORDERED: MORPHINE 4 MG/ML SYR IV ONE (05:39)
[2020-08-31] MEDS ORDERED: MORPHINE 4 MG/ML SYR ONE (06:03)
[2020-08-31] MEDS ORDERED: ROCURONIUM 50 MG/5 ML VIAL IV ONE (06:58)
[2020-08-31] MEDS ORDERED: propofoL 200 MG/20 ML VIAL IV ONE (06:58)
[2020-08-31] MEDS ORDERED: LIDOCAINE 2% MPF 5 ML VIAL ONE (06:58)
[2020-08-31] MEDS ORDERED: MIDAZOLAM HCL 2 MG/2 ML INJ ONE (06:58)
[2020-08-31] MEDS ORDERED: FENTANYL CITR 100 MCG/2 ML ONE ×2 (06:58→08:49)
[2020-08-31] MEDS ORDERED: ONDANSETRON 4 MG/2 ML VIAL ONE ×2 (06:59→10:36)
[2020-08-31] MEDS ORDERED: PIPER/TAZO/NS 3.375gm 3.375 GM/100 ML BAG IV ONE (07:15)
--- NOTE | 2020-08-31 07:15 | P.HP ---
Date of Service: 08/31/20 PC: This 55-year-old male presents to the emergency room with severe right lower quadrant abdominal pain for diagnosis and treatment. HPC: Patient states that is all was been having pain in that right lower quadrant for the last couple years. However left-sided became very severe, could hardly walk with it, and came to the ER for evaluation PMH: Covid in May, hypertension, hypercholesterolemia PSHx: Previous hand surgery SOC: No known allergies SYS REVIEW: Smoker's cough, GI as mentioned above, denies any symptoms O/E wake alert uncomfortable vitals are stable HEENT: Not jaundice Chest: Chest movement equal bilaterally ABD: Tender with guarding in the right lower quadrant LOCO: Intact DATA: The white cell count, CT scan supports clinical diagnosis of acute abdomen with probable appendicitis IMPRESSION: Acute appendicitis PLAN: The operating room for laparoscopic possible open appendectomy. The risks of this procedure have been discussed. The possibility of bleeding, infection, injury to bowel blood vessels and surrounding structures have been described. The possible need for an open and/or further surgeries and procedures was discussed. He understands and wants to proceed.
[2020-08-31] MEDS ORDERED: Ringers Lactate 1,000 ML IV ONE ×2 (07:29→15:36)
[2020-08-31] MEDS ORDERED: Phenylephrine HCl 10 MG/ML 1 ML VIAL ONE (08:05)
[2020-08-31] MEDS: Ringers Lactate 1,000 ML IV ONE ×2 (08:59→09:06)
--- NOTE | 2020-08-31 09:48 | P.OP ---
Preoperative diagnosis: Acute abdomen with appendicitis Postoperative diagnosis: The same with ruptured appendix Primary procedure: Laparoscopic appendectomy Secondary procedure: Mobilization of the cecum Anesthesia: General Estimated blood loss: Less than 20 cc Specimen: 1 appendix, and 1 base of the cecum Operative Technique: The patient brought the operating room and placed supine on the table. After the induction of adequate general endotracheal anesthesia, the area of the abdomen was prepped with a DuraPrep solution, and he was draped in usual aseptic manner. A subumbilical incision was made. This was brought down through the skin and subcutaneous tissue. The Visiport was used to enter the peritoneal cavity and created pneumoperitoneum to approximately 12 mm of mercury. We could see in the right lower quadrant there was evidence of inflammatory change with some thick purulent exudate on top of the omentum. There was 1 area of the purulent material was identified this was aspirated from the surrounding area. We each found there were numerous adhesions of the omentum in the right lower quadrant. Is omentum was were gently mobilize. The fat folds around the ileocecal valve were markedly adherent as well. We finally found a large tubular structure in the posterior portion of the abdomen just at the pelvic brim. This was identified as the appendix itself. The mesentery of the appendix was taken down these electro cautery. We had to trace it from the distal portion proximally. As it approached the cecum there appeared to be a portion of the appendix actually missing. It seemed that the patient may have had a rupture over the last week or so with necrosis of the tissue and corresponding Skylar inflammatory changes. On history the patient did mention he would have been having pain for the last for 5 months. At this point the base of what we had dissected the appendix was reached. There was still some inflammatory tissue plan at the end of the cecum itself. We did not see any opening there was no leakage from the cecum however what we did was grasped the end of the cecum mobilize the cecum medially so that we could sure that we were all the way around it and we did fires a staple line across this to ensure that the appendix orifice and the base the appendix and cecum more sealed. At this point the specimens were placed into an endo-pouch and brought out through the umbilical port site. The chest was turned back towards the right lower quadrant. The area was irrigated with a copious amount of saline solution. The irrigating fluid was aspirated from the peritoneal cavity. The Endo Close was used to approximate the umbilical trocar defect to. 2 absorbable sutures were used to approximate the tissue. At this point the pneumoperitoneum was collapsed, and erin were applied to the skin. He was in a stable condition when sent to the recovery room. Needle sponge instrument count were correct. No drains were placed. Complications: None Transferred to: Recovery Room Condition: Good
[2020-08-31] MEDS ORDERED: KETOROLAC 30 MG/ML INJ ONE (09:55)
[2020-08-31] MEDS: MORPHINE 4 MG/ML SYR ONE ×2 (10:24→10:28)
[2020-08-31] MEDS: MORPHINE 4 MG/ML SYR IV PRN ×2 (11:04→20:13)
--- NOTE | 2020-08-31 11:26 | RAD REPORT ---
EXAM DESCRIPTION: CT - Abdomen Pelvis W Contrast - 08/30/2020 10:25 pm ADDENDUM #1 The coronal and sagittal reconstructions are now available, subsequent to the finalization of the hernán ginal report. Additional findings include: Mild hepatomegaly, measuring 18.9 cm in length. Moderate L5-S1 disc and endplate degenerative changes. Electronically signed by: Vonda Warren MD 08/30/2020 11:23 PM CDT End of Addendum EXAM DESCRIPTION: Abdomen Pelvis W Contrast RadLex: CT ABDOMEN PELVIS WITH IV CONTRAST CLINICAL HISTORY: ABD PAIN. COMPARISON: None. TECHNIQUE: CT of the abdomen and pelvis was performed following intravenous administration of iodina mojgan contrast. Arterial phase images through the abdomen, and portal venous images through the pelvis were obtained. Oral contrast was not administered. Axial, coronal, and sagittal soft tissue window re constructions were created and sent to PACS. This exam was performed according to our departmental dose-optimization program, which includes autom ated exposure control, adjustment of the mA and/or kV according to patient size and/or use of iterati ve reconstruction technique. FINDINGS: Thoracic: No significant abnormality. Hepatobiliary: No concerning hepatic lesion identified. The hepatic and portal veins are patent. The gallbladder is unremarkable. No biliary ductal dilatation. Pancreas: Unremarkable. Spleen: Small calcified granuloma in the superior spleen. Gastrointestinal: Dilated appendix in the right lower quadrant which measures up to 2.2 cm in diamete r. Moderate surrounding fat stranding. No adjacent fluid collections or free fluid. Mild left colonic diverticulosis, with no specific surrounding inflammatory changes. No evidence of bowel obstruction. Adrenals: No abnormality identified in either adrenal gland. Renal: No concerning parenchymal abnormality in either kidney. No hydronephrosis or urolithiasis. Bladder/Reproductive: Unremarkable appearance of the urinary bladder by CT technique. Vascular/Lymphatics: Mildly prominent right lower quadrant lymph node, likely reactive. Abdominal aor ta is normal in caliber. Mild atherosclerosis. The major visceral vessels are patent. Musculoskeletal: No concerning osseous lesion identified. Fluid / peritoneum: No significant free fluid. No free intraperitoneal air identified. IMPRESSION 1. Acute uncomplicated appendicitis. 2. Mild left colonic diverticulosis, with no CT evidence of acute diverticulitis. Electronically signed by: Vonda Warren MD 08/30/2020 10:43 PM CDT Due to temporary technical issues with the PACS/Fluency reporting system, reports are being signed by the in house radiologist without review as a courtesy to ensure prompt reporting. The interpreting r adiologist is fully responsible for the content of the report.
--- NOTE | 2020-08-31 15:09 | P.PN ---
Date of Service: 08/31/20 S: Patient feels better, has more muscle soreness than actual pain. O: Vital signs are stable, A: Stable status post laparoscopic appendectomy P: I discussed his surgical findings with the patient. He may have been sick a little longer than he initially described. Antibiotics today. Encourage patient to sit on a chair, ambulate, use incentive spirometer. Will re-evaluate in a.m..
[2020-08-31] MEDS: Ringers Lactate 1,000 ML IV SCH (15:42)
[2020-08-31] MEDS: METRONIDAZOLE 500mg IVPB 500 MG/100 ML BAG IV SCH (16:17)
[2020-08-31] MEDS ORDERED: PIPER/TAZO/NS 3.375gm 3.375 GM/100 ML BAG IVPB SCH (17:00)
[2020-08-31] MEDS: PIPER/TAZO/NS 3.375gm 3.375 GM/100 ML BAG IVPB SCH (17:30)
[2020-08-31] MEDS: HYDROCODONE/APAP 7.5/325 MG TAB PO PRN (22:30)
[2020-09-01] MEDS: METRONIDAZOLE 500mg IVPB 500 MG/100 ML BAG IV SCH ×3 (00:07→16:43)
[2020-09-01] MEDS: PIPER/TAZO/NS 3.375gm 3.375 GM/100 ML BAG IVPB SCH ×3 (01:10→16:44)
[2020-09-01] MEDS: MORPHINE 4 MG/ML SYR IV PRN ×4 (03:43→22:46)
[2020-09-01] MEDS: HYDROCODONE/APAP 7.5/325 MG TAB PO PRN (06:36)
[2020-09-01] MEDS: Ringers Lactate 1,000 ML IV SCH (12:00)
[2020-09-01] MEDS ORDERED: NA CHLORIDE 0.9% 500 ML IV ONE (12:25)
[2020-09-01] MEDS ORDERED: NA CHLORIDE 0.9% 500 ML ONE (12:51)
[2020-09-01] MEDS: D5.45NS W/KCL 20MEQ 20 MEQ/1,000 ML BAG IV SCH ×2 (13:00→20:33)
[2020-09-01] MEDS ORDERED: MINERAL OIL 30 ML UCUP PO ONE (14:28)
[2020-09-01 14:37] LABS: Albumin 2.7 g/dL (3.4-5.0); Bilirubin Total 0.9 mg/dL (0.2-1.0); Magnesium 1.9 mg/dL (1.8-2.4); Phosphorus 2.3 mg/dL (2.5-4.9); Protein, Total 6.6 g/dL (6.4-8.2)
--- NOTE | 2020-09-01 15:08 | P.PN ---
Date of Service: 09/01/20 S: Patient continues to improve. Has some abdominal distention today. Not much of an appetite. Difficulty voiding and had a be catheterized. O : Vital signs are stable, pain appears to be controlled. A: Patient still appears to have postop ileus P: Encourage patient again out of bed by himself. Use incentive spirometry. I will give this some mineral oil today. Anticipate discharge in the next 48 hr.
[2020-09-01 15:09] LABS: Urine Appearance CLEAR (Clear); Urine Bilirubin NEGATIVE (Negative); Urine Blood NEGATIVE (Negative); Urine Color DK YELLOW (Yellow); Urine Glucose NEGATIVE (Negative); Urine Protein TRACE (Negative); Urine Specific Gravity 1.025 (1.005-1.030); Urine Urobilinogen 0.2 mg/dL (0.2-1.0)
[2020-09-01 15:45] LABS: Absolute Lymphocytes (CBC) 0.8 K/uL (0.7-4.9); Basophils % 0.3 % (0-1.3); Hematocrit 42.3 % (39.6-49.0); Lymphocytes % 6.8 % (15.3-44.8); MPV 8.7 fL (7.6-11.3); RBC Red Blood Cell Count 4.77 M/uL (4.33-5.43)
--- NOTE | 2020-09-01 15:46 | P.PN ---
Subjective Date of Service: 09/01/20 Physical Examination - Vital Signs Temperature: 99 F Blood Pressure: 125/80 Pulse: 120 Respirations: 24 Pulse Ox (%): 90
[2020-09-01 15:57] LABS: Urine Amorphous Sediment 3+ /HPF (NONE SEEN); Urine Bacteria <20 /HPF (NONE SEEN); Urine Mucus 3+ /HPF (NONE SEEN); Urine RBC <5 /HPF (NONE SEEN)
[2020-09-01 16:07] LABS: Ferritin 328.3 ng/mL (26-388)
[2020-09-01 16:21] LABS: Blood Morphology Comment NOT SEEN (NOT SEEN); Platelet Estimate ADEQ
--- NOTE | 2020-09-01 16:59 | RAD REPORT ---
EXAM DESCRIPTION: RAD - Chest Single View - 09/01/2020 4:47 pm CLINICAL HISTORY: COVID(+) SOB COMPARISON: Portable June 05 TECHNIQUE: AP portable chest image was obtained 09/01/2020 4:47 pm . FINDINGS: Lung volumes are very low limiting assessment. Infiltrative changes seen in May are n ot clearly identifiable on the current examination. Failure and volume overload are not suspected. Ca rdiomediastinal silhouette is accentuated by portable technique and low lung volume. No measurable pl eural effusion and no pneumothorax. No acute bony abnormality seen. No acute aortic finding. NG tube is in place. Tip is curled in the proximal stomach. IMPRESSION: NG tube is well positioned in the proximal stomach. Chest portion is limited but no acute cardiopulmonary finding seen.
--- NOTE | 2020-09-01 17:01 | RAD REPORT ---
EXAM DESCRIPTION: RAD - Abdomen 1 View (KUB) - 09/01/2020 4:48 pm CLINICAL HISTORY: abdominal distension/pain Recent diagnosis of appendicitis COMPARISON: No comparisons FINDINGS: NG tube is well positioned, curled in the proximal stomach. Stomach is decompressed. Multiple distended and mildly dilated air-filled small bowel loops are present. Given the recent surg calvin this is most likely ileus. Skin erin are seen in the midline pelvis and right mid abdomen. No suspicious calcifications. No suspicious calcifications. IMPRESSION: Numerous distended and mildly dilated air-filled small bowel loops favored to be ileus o luis miguel bowel obstruction. No free air or pneumatosis. NG tube is well positioned, curled in the proximal stomach.
[2020-09-01] MEDS ORDERED: NA CHLORIDE 0.9% 1,000 ML IV ONE (18:08)
[2020-09-01] MEDS ORDERED: NA CHLORIDE 0.9% 1,000 ML ONE (18:28)
--- NOTE | 2020-09-01 19:44 | P.CNS ---
Date of Consult: 09/01/20 Reason for Consult: Medical management Requesting Physician: Gene Capellan Chief Complaint: Perforated appendicitis History of Present Illness: 55-year-old male with history of hypertension, hyperlipidemia for which he is not currently taking medications for presented to the emergency department on 08/31/2020 and was diagnosed with acute uncomplicated appendicitis. Patient was admitted to the surgical services and was taken to the operating room. During surgery the surgeon noted that it seemed as if the patient may have had a rupture over the course of the last week prior to admission with necrosis of the tissue and corresponding inflammatory changes. Patient with successful laparoscopic appendectomy, was transferred to the intensive care unit. Patient previously tested positive for Cintron virus in May and has not since been tested again. Over the course of the last 24 hr patient noted to have abdominal distension, KUB was obtained which demonstrated prominent ileus pattern, NG tube was inserted and patient did have some relief of abdominal distension/pain. Hospitalist service was consulted for additional support in managing patient. Allergies No Known Drug Allergies Allergy (Verified 07/28/14 06:24) Unknown Home Medications: NK [No Home Meds] 08/31/20 - Past Medical/Surgical History Diabetic: No -: Hypertension in the past not taking any med at the moment -: high cholestrol in the past not taking any med at the moment -: left hand surgery due to accident -: [place] due to high energy drink intake as per patient -: left hand surgery - Family History Mother Medical History: Heart disease, Cancer Father Medical History: Heart disease, Hypertension, Diabetes - Social History Smoking Status: Current every day smoker Alcohol use: No CD- Drugs: No Caffeine use: Yes Place of Residence: Home Review of Systems 10-point ROS is otherwise unremarkable General: Weakness, Malaise Gastrointestinal: Nausea, Abdominal Pain, Distention, Constipation, As per HPI Physical Examination Temp Pulse Resp BP Pulse Ox 98.3 F 126 H 34 H 130/96 H 92 09/01/20 16:00 09/01/20 16:00 09/01/20 16:00 09/01/20 16:00 09/01/20 16:00 General: Alert, In no apparent distress, Oriented x3 HEENT: Atraumatic, Normocephalic, Other (Mucous membranes dry) Neck: Supple Respiratory: Clear to auscultation bilaterally, Diminished Cardiovascular: Regular rate/rhythm (Sinus tachycardia rate around 120), Normal S1 S2 Capillary refill: <2 Seconds Gastrointestinal: Hypoactive, No masses, No rebound, No guarding, Tenderness (Right lower quadrant tenderness noted on exam) Musculoskeletal: No contractures, No erythema, No tenderness Integumentary: No significant lesion, No tenderness/swelling, No erythema Neurological: Normal strength at 5/5 x4 extr, Normal tone, Sensation intact Lymphatics: No axilla or inguinal lymphadenopathy Conclusions/Impression: Assessment Acute perforated appendicitis status post laparoscopic appendectomy complicated with postoperative ileus COVID + Hypertension, hyperlipidemia Plan Acute perforated appendicitis status post laparoscopic appendectomy complicated with postoperative ileus: Patient recently had NGT inserted, NPO. Patient some improvement of abdominal distension after insertion, continue with IV antibiotics, IV fluids, NGT to low intermittent wall suction. Patient given normal saline bolus as he was tachycardic to around 125 and appear dry. Will continue to monitor patient closely, appreciate further input from general surgery. COVID +: Patient tested positive in May, has not had any test since then, unable to determine definitively if this is an acute phase or if he is still testing positive from prior infection. Patient with some small mild oxygen requirement, CRP significantly elevated this is likely related to perforated appendicitis. Will continue to monitor patient's respiratory status closely, steroids only if necessary. Hypertension, hyperlipidemia: Not currently taking any medications, stable. Critical Care: No Time Spent Managing Pts care (In Minutes): 35
[2020-09-01] MEDS ORDERED: ACETAMINOPHEN 650MG/RECT SUPP PR PRN (20:11)
[2020-09-02] MEDS: METRONIDAZOLE 500mg IVPB 500 MG/100 ML BAG IV SCH ×3 (00:05→17:17)
[2020-09-02] MEDS: PIPER/TAZO/NS 3.375gm 3.375 GM/100 ML BAG IVPB SCH ×3 (00:47→17:17)
[2020-09-02] MEDS: MORPHINE 4 MG/ML SYR IV PRN ×3 (05:25→21:46)
[2020-09-02] MEDS ORDERED: MINERAL OIL 30 ML UCUP FT ONE (11:13)
[2020-09-02] MEDS: D5.45NS W/KCL 20MEQ 20 MEQ/1,000 ML BAG IV SCH ×2 (12:08)
--- NOTE | 2020-09-02 14:30 | P.PN ---
Date of Service: 09/02/20 S: Patient has less distention today, status post insertion of a nasogastric tube. Started to feel his stomal trial. Still bowel movements. O: Vital signs are stable. No new lab work to reviewed today. Adequate urine output . Has some hyperactive bowel sounds. A : Continues to improve, postop ileus appears to be resolving. P: Mineral oil via nasogastric tube, anticipate Dc NG tube and Zheng catheter in the a.m.. Will repeat CBC in a.m..
--- NOTE | 2020-09-02 15:45 | P.PN ---
Subjective Date of Service: 09/02/20 Chief Complaint: Perforated appendicitis Subjective: Improving (Still no bowel movement.) Physical Examination - Vital Signs Temperature: 97.9 F Blood Pressure: 124/91 Pulse: 105 Respirations: 22 Pulse Ox (%): 96 Assessment & Plan Discharge Plan: Home Plan to discharge in: 72 Hours Physician Review Additional Text: Physical exam: Patient alert, cooperative Vital signs stable Heart: Regular rate rhythm Lungs: Clear to auscultation Abdomen: Less distention noted. NG tube in place. Extremities: No focal deficits Assessment Acute perforated appendicitis status post laparoscopic appendectomy complicated with postoperative ileus COVID + Hypertension, hyperlipidemia Plan Acute perforated appendicitis status post laparoscopic appendectomy complicated with postoperative ileus: NG tube in place. Patient improved. Patient remains NPO. Continue with low intermittent suction. Continue IV fluids. Monitor the patient closely. Will discuss with General surgery. Anticipate improvement over the next several days. COVID +: Patient tested positive in May, has not had any test since then, unable to determine definitively if this is an acute phase or if he is still testing positive from prior infection. Patient with some small mild oxygen requirement, CRP significantly elevated this is likely related to perforated appendicitis. Will continue to monitor patient's respiratory status closely, steroids only if necessary. Hypertension, hyperlipidemia: Not currently taking any medications, stable. Time Spent Managing Pts Care (In Minutes): 55
[2020-09-03] MEDS: D5.45NS W/KCL 20MEQ 20 MEQ/1,000 ML BAG IV SCH ×3 (00:45→13:00)
[2020-09-03] MEDS: METRONIDAZOLE 500mg IVPB 500 MG/100 ML BAG IV SCH ×3 (00:46→18:06)
[2020-09-03] MEDS: PIPER/TAZO/NS 3.375gm 3.375 GM/100 ML BAG IVPB SCH ×3 (01:39→18:06)
[2020-09-03] MEDS: MORPHINE 4 MG/ML SYR IV PRN ×4 (03:17→22:52)
[2020-09-03 05:26] LABS: Basophils % 0.2 % (0-1.3); Hematocrit 35.7 % (39.6-49.0); Lymphocytes % 7.6 % (15.3-44.8); MPV 9.2 fL (7.6-11.3); RBC Red Blood Cell Count 4.07 M/uL (4.33-5.43)
--- NOTE | 2020-09-03 14:59 | P.PN ---
Subjective Date of Service: 09/03/20 Chief Complaint: Perforated appendicitis Subjective: Improving Physical Examination - Vital Signs Temperature: 98.5 F Blood Pressure: 134/92 Pulse: 95 Respirations: 24 Pulse Ox (%): 98 Assessment & Plan Discharge Plan: Home Plan to discharge in: Greater than 2 days Physician Review Additional Text: Physical exam: Patient alert, cooperative Vital signs stable Heart: Regular rate rhythm Lungs: Clear to auscultation Abdomen: Less distention noted. NG tube in place. Patient reports passage of gas and stool Extremities: No focal deficits Assessment Acute perforated appendicitis status post laparoscopic appendectomy complicated with postoperative ileus COVID + Hypertension, hyperlipidemia Plan Acute perforated appendicitis status post laparoscopic appendectomy complicated with postoperative ileus: Patient reports passage of gas and stool. NG tube in place. Patient continues to improve. Continue IV fluids and antibiotics. Anticipate general surgery to reassess and consider removal of NG tube. DC Zheng catheter. Consider advancement of diet if okay with surgery. Continue DVT prophylaxis. We will continue to monitor closely. Anticipate improvement over the next several days. COVID +: Patient tested positive in May, has not had any test since then, unable to determine definitively if this is an acute phase or if he is still testing positive from prior infection. Patient with some small mild oxygen requirement, CRP significantly elevated this is likely related to perforated appendicitis. Will continue to monitor patient's respiratory status closely, steroids only if necessary. Hypertension, hyperlipidemia: Not currently taking any medications, stable. Time Spent Managing Pts Care (In Minutes): 55
[2020-09-03] MEDS: ENOXAPARIN 40 MG/0.4 ML SQ SCH (18:07)
[2020-09-04] MEDS: D5.45NS W/KCL 20MEQ 20 MEQ/1,000 ML BAG IV SCH ×5 (00:05→23:17)
[2020-09-04] MEDS: METRONIDAZOLE 500mg IVPB 500 MG/100 ML BAG IV SCH ×3 (00:06→16:13)
[2020-09-04] MEDS: PIPER/TAZO/NS 3.375gm 3.375 GM/100 ML BAG IVPB SCH ×3 (00:07→16:13)
[2020-09-04 05:06] LABS: Basophils % 0.4 % (0-1.3); Hematocrit 34.2 % (39.6-49.0); RBC Red Blood Cell Count 3.88 M/uL (4.33-5.43)
[2020-09-04 05:19] LABS: BUN Blood Urea Nitrogen 15 mg/dL (7-18); Bicarbonate 25 mmol/L (21-32); Glucose Level 164 mg/dL (74-106); Magnesium 2.1 mg/dL (1.8-2.4); Potassium 3.5 mmol/L (3.5-5.1); Sodium Level 141 mmol/L (136-145)
[2020-09-04] MEDS: MORPHINE 4 MG/ML SYR IV PRN (12:19)
--- NOTE | 2020-09-04 15:32 | P.PN ---
Date of Service: 09/04/20 S: Patient feels better today just had a large mass of bowel movement. Abdomen feels a whole lot better. O: Vital signs are stable, abdomen a low bit softer. Thick secretions from NG tube. A: Postop ileus appears to have resolved P: 1 more dose of mineral oil bonnie, Patrick NG tube, if well in the a.m. may be discharged soon.
[2020-09-04] MEDS: ENOXAPARIN 40 MG/0.4 ML SQ SCH (16:13)
[2020-09-04] MEDS ORDERED: MINERAL OIL 30 ML UCUP FT ONE (17:00)
--- NOTE | 2020-09-04 17:10 | P.PN ---
Subjective Date of Service: 09/04/20 Chief Complaint: Perforated appendicitis Subjective: Doing well Physical Examination - Vital Signs Temperature: 98.4 F Blood Pressure: 130/85 Pulse: 90 Respirations: 25 Pulse Ox (%): 95 Assessment & Plan Discharge Plan: Home Plan to discharge in: 48 Hours Physician Review Additional Text: Physical exam: Patient alert, cooperative Vital signs stable Heart: Regular rate rhythm Lungs: Clear to auscultation Abdomen: Less distention noted. NG tube in place. Patient reports passage of gas and stool Extremities: No focal deficits Assessment Acute perforated appendicitis status post laparoscopic appendectomy complicated with postoperative ileus COVID + Hypertension, hyperlipidemia Plan Acute perforated appendicitis status post laparoscopic appendectomy complicated with postoperative ileus: Patient reports passage of gas and stool. Slow improvement noted. NG tube in place. Continue IV fluids and antibiotics. Continue with surgery recommendations on when to remove NG tube. Continue DVT prophylaxis. Dc Zheng catheter. We will continue to monitor closely. Anticipate improvement over the next several days. COVID +: Patient tested positive in May, has not had any test since then, unable to determine definitively if this is an acute phase or if he is still testing positive from prior infection. Patient with some small mild oxygen requirement, CRP significantly elevated this is likely related to perforated appendicitis. Will continue to monitor patient's respiratory status closely, steroids only if necessary. Hypertension, hyperlipidemia: Not currently taking any medications, stable. Time Spent Managing Pts Care (In Minutes): 55
[2020-09-04] MEDS: ENSURE CLEAR 200 ML CAN PO SCH (20:37)
[2020-09-05] MEDS: METRONIDAZOLE 500mg IVPB 500 MG/100 ML BAG IV SCH ×3 (00:12→16:13)
[2020-09-05] MEDS: PIPER/TAZO/NS 3.375gm 3.375 GM/100 ML BAG IVPB SCH ×3 (00:12→16:13)
[2020-09-05 04:55] LABS: Absolute Lymphocytes (CBC) 1.3 K/uL (0.7-4.9); Basophils % 0.6 % (0-1.3); Hematocrit 33.7 % (39.6-49.0); Lymphocytes % 9.7 % (15.3-44.8); MPV 8.8 fL (7.6-11.3); RBC Red Blood Cell Count 3.85 M/uL (4.33-5.43)
[2020-09-05] MEDS: D5.45NS W/KCL 20MEQ 20 MEQ/1,000 ML BAG IV SCH ×3 (05:00→23:34)
[2020-09-05 05:05] LABS: BUN Blood Urea Nitrogen 13 mg/dL (7-18); Bicarbonate 25 mmol/L (21-32); Glucose Level 139 mg/dL (74-106); Magnesium 2.1 mg/dL (1.8-2.4); Potassium 3.3 mmol/L (3.5-5.1); Sodium Level 140 mmol/L (136-145)
[2020-09-05] MEDS: ENSURE CLEAR 200 ML CAN PO SCH ×2 (08:09→21:00)
[2020-09-05] MEDS ORDERED: POTASSIUM CL SA 10 MEQ TAB PO ONE (10:14)
--- NOTE | 2020-09-05 11:01 | RAD REPORT ---
EXAM DESCRIPTION: RAD - Abdomen 1 View (KUB) - 09/05/2020 10:46 am CLINICAL HISTORY: Abdomen pain. FINDINGS: Some of the mildly dilated loops of small bowel are unchanged. A few loops of small bowel are diminished in caliber. No abnormal mass is displayed.
[2020-09-05] MEDS: ONDANSETRON 4 MG/2 ML VIAL IV PRN ×2 (11:31→19:56)
--- NOTE | 2020-09-05 12:20 | P.PN ---
Subjective Date of Service: 09/05/20 Chief Complaint: Perforated appendicitis Subjective: Other (Still with slow intake. Currently on clear liquids. Some nausea today.) Physical Examination - Vital Signs Temperature: 97.6 F Blood Pressure: 140/90 Pulse: 72 Respirations: 26 Pulse Ox (%): 90 Assessment & Plan Discharge Plan: Home Plan to discharge in: Greater than 2 days Physician Review Additional Text: Physical exam: Patient alert, cooperative Vital signs stable Heart: Regular rate rhythm Lungs: Clear to auscultation Abdomen: Reports fullness. Less distention noted since yesterday. NG tube no longer in place. Patient reports passage of gas and stool. Extremities: No focal deficits Assessment Acute perforated appendicitis status post laparoscopic appendectomy complicated with postoperative ileus COVID + Hypertension, hyperlipidemia Plan Acute perforated appendicitis status post laparoscopic appendectomy complicated with postoperative ileus: This morning patient reported some fullness. Reports passage of gas and stool. NG tube no longer in place. Nurse later reported some bilious vomitus. Case discussed with surgery. Surgery to evaluate. KUB remains unchanged. Surgery to evaluate for possible reinitiation of NG tube or to continue monitor closely. Clear liquids or keep n.p.o. at this time. Continue DVT prophylaxis. Continue antibiotics. Anticipate continued improvement. COVID +: Patient tested positive in May, has not had any test since then, unable to determine definitively if this is an acute phase or if he is still testing positive from prior infection. Patient with some small mild oxygen requirement, CRP significantly elevated this is likely related to perforated appendicitis. Will continue to monitor patient's respiratory status closely, steroids only if necessary. Hypertension, hyperlipidemia: Currently stable off medication. Will consider restarting medication if this remains elevated. Time Spent Managing Pts Care (In Minutes): 55
[2020-09-05] MEDS: ENOXAPARIN 40 MG/0.4 ML SQ SCH (16:13)
[2020-09-05] MEDS: MORPHINE 4 MG/ML SYR IV PRN (19:55)
[2020-09-06] MEDS: METRONIDAZOLE 500mg IVPB 500 MG/100 ML BAG IV SCH ×2 (01:12→08:13)
[2020-09-06] MEDS: D5.45NS W/KCL 20MEQ 20 MEQ/1,000 ML BAG IV SCH ×2 (05:00→13:31)
[2020-09-06 05:04] LABS: Absolute Lymphocytes (CBC) 1.6 K/uL (0.7-4.9); Basophils % 0.4 % (0-1.3); Hematocrit 34.1 % (39.6-49.0); Lymphocytes % 11.1 % (15.3-44.8); MPV 8.6 fL (7.6-11.3)
[2020-09-06 05:19] LABS: BUN Blood Urea Nitrogen 10 mg/dL (7-18); Bicarbonate 26 mmol/L (21-32); Glucose Level 136 mg/dL (74-106); Potassium 3.4 mmol/L (3.5-5.1); Sodium Level 140 mmol/L (136-145)
[2020-09-06 07:28] LABS: Blood Morphology Comment NOT SEEN (NOT SEEN); Platelet Estimate ADEQ
[2020-09-06] MEDS: PIPER/TAZO/NS 3.375gm 3.375 GM/100 ML BAG IVPB SCH ×3 (08:12→16:52)
[2020-09-06] MEDS: MORPHINE 4 MG/ML SYR IV PRN (08:13)
[2020-09-06] MEDS: ONDANSETRON 4 MG/2 ML VIAL IV PRN (08:14)
--- NOTE | 2020-09-06 08:44 | P.PN ---
Subjective Date of Service: 09/06/20 Primary Care Provider: Dr. Wilkes Chief Complaint: Perforated appendicitis Subjective: Improving (Patient reports slight improvement. He did have an episode of nausea and vomiting last night. No need for NG tube yesterday. Passage of gas and stool noted. Patient ambulating.) Physical Examination - Vital Signs Temperature: 98.4 F Blood Pressure: 113/54 Pulse: 71 Respirations: 25 Pulse Ox (%): 92 Assessment & Plan Discharge Plan: Home Plan to discharge in: 48 Hours Physician Review Additional Text: Physical exam: Patient alert, cooperative Vital signs stable Heart: Regular rate rhythm Lungs: Clear to auscultation Abdomen: Abdominal distention noted but improved. Bowel sounds decreased. Patient reports passage of gas and stool. No significant abdominal pain noted and as expected postoperatively. Postsurgical changes noted. Extremities: No focal deficits Assessment Acute perforated appendicitis status post laparoscopic appendectomy complicated with postoperative ileus COVID + Hypertension Hyperlipidemia Plan Acute perforated appendicitis status post laparoscopic appendectomy complicated with postoperative ileus: Patient continues to slowly improve. Currently on clear liquid diet. No need for NG tube. Patient had episode of vomiting yesterday. No evidence of nausea this morning. Continue clear liquids. Will advance diet slowly and as recommended by surgery. Encourage ambulation. Encourage incentive spirometer. Will decrease IV fluids by half. Continue DVT prophylaxis. Will discontinue Flagyl but continue Zosyn IV. Anticipate continued improvement. Likely home in the next 48 hours once able to tolerate full liquid to soft diet. I will turn the service over to the hospitalist team tomorrow. I will go plan of care with him. COVID +: Patient remains asymptomatic at this time. No significant need for oxygen. No need for IV steroids. Will monitor closely. Patient tested positive in May. Hypertension: Patient remained stable off medication at this time. Likely no need for medication at discharge. Will monitor closely. Hyperlipidemia: Patient currently off medication at this time. Will consider restarting at discharge. DVT prophylaxis: Lovenox Time Spent Managing Pts Care (In Minutes): 55
[2020-09-06] MEDS: ENSURE CLEAR 200 ML CAN PO SCH ×2 (09:00→20:34)
[2020-09-06] MEDS: HYDROCODONE/APAP 7.5/325 MG TAB PO PRN ×2 (13:33→20:33)
[2020-09-06] MEDS: ENOXAPARIN 40 MG/0.4 ML SQ SCH (16:51)
[2020-09-06] MEDS ORDERED: POTASSIUM CL SA 10 MEQ TAB PO ONE (18:55)
[2020-09-07] MEDS: PIPER/TAZO/NS 3.375gm 3.375 GM/100 ML BAG IVPB SCH ×3 (00:28→17:01)
[2020-09-07] MEDS: D5.45NS W/KCL 20MEQ 20 MEQ/1,000 ML BAG IV SCH ×2 (03:11→11:40)
[2020-09-07] MEDS: HYDROCODONE/APAP 7.5/325 MG TAB PO PRN (03:11)
[2020-09-07 05:18] LABS: Absolute Lymphocytes (CBC) 2.1 K/uL (0.7-4.9); Basophils % 0.5 % (0-1.3); Hematocrit 36.2 % (39.6-49.0); Lymphocytes % 13.7 % (15.3-44.8); MPV 8.9 fL (7.6-11.3); RBC Red Blood Cell Count 4.17 M/uL (4.33-5.43)
[2020-09-07 05:37] LABS: BUN Blood Urea Nitrogen 9 mg/dL (7-18); Bicarbonate 28 mmol/L (21-32); Glucose Level 102 mg/dL (74-106); Magnesium 2.1 mg/dL (1.8-2.4); Potassium 3.9 mmol/L (3.5-5.1); Sodium Level 138 mmol/L (136-145)
[2020-09-07] MEDS ORDERED: POTASSIUM CL SA 10 MEQ TAB PO ONE (08:00)
[2020-09-07] MEDS ORDERED: MAGNES/ALUMIN/SIMET 30ML UCUP PO PRN (08:52)
[2020-09-07] MEDS: ENSURE CLEAR 200 ML CAN PO SCH ×2 (09:00→21:00)
--- NOTE | 2020-09-07 13:25 | RAD REPORT ---
EXAM DESCRIPTION: RAD - Abdomen W Erect - 09/07/2020 1:16 pm CLINICAL HISTORY: DISTENDED Pain COMPARISON: Abdomen 1 View (KUB) dated 09/05/2020 FINDINGS: Dilatation of large and small bowel loops in a non organized fashion is most compatible wi th a [id number] adynamic ileus. No pneumoperitoneum is seen.
[2020-09-07] MEDS: ENOXAPARIN 40 MG/0.4 ML SQ SCH (17:01)
[2020-09-08] MEDS: D5.45NS W/KCL 20MEQ 20 MEQ/1,000 ML BAG IV SCH (00:19)
[2020-09-08] MEDS: PIPER/TAZO/NS 3.375gm 3.375 GM/100 ML BAG IVPB SCH ×3 (00:30→17:03)
[2020-09-08 04:39] LABS: Absolute Lymphocytes (CBC) 1.6 K/uL (0.7-4.9); Basophils % 0.7 % (0-1.3); Hematocrit 33.3 % (39.6-49.0); Lymphocytes % 11.7 % (15.3-44.8); MPV 8.4 fL (7.6-11.3); RBC Red Blood Cell Count 3.91 M/uL (4.33-5.43)
[2020-09-08] MEDS: HYDROCODONE/APAP 7.5/325 MG TAB PO PRN ×2 (05:08→13:26)
[2020-09-08 05:15] LABS: BUN Blood Urea Nitrogen 7 mg/dL (7-18); Bicarbonate 25 mmol/L (21-32); Ferritin 294.5 ng/mL (26-388); Glucose Level 103 mg/dL (74-106); Magnesium 2.3 mg/dL (1.8-2.4); Potassium 3.7 mmol/L (3.5-5.1); Sodium Level 137 mmol/L (136-145)
[2020-09-08] MEDS: ENSURE CLEAR 200 ML CAN PO SCH ×2 (07:23→20:09)
--- NOTE | 2020-09-08 14:52 | P.PN ---
Date of Service: 09/08/20 S: The patient is tolerating a diet. Apparently started having some bowel movements. Feels a lot better than he does when he 1st came in. O: Abdomen is still mildly distended. Soft, nontender A: Surgically stable P: If patient tolerates a regular diet today, has no nausea and vomiting maybe discharge in a.m.. He will come see me in my office next Monday or Monday. We can determine at that time when he will go back to work.
[2020-09-08] MEDS: ENOXAPARIN 40 MG/0.4 ML SQ SCH (17:03)
[2020-09-09] MEDS: PIPER/TAZO/NS 3.375gm 3.375 GM/100 ML BAG IVPB SCH ×2 (00:56→07:38)
[2020-09-09 04:50] LABS: Absolute Lymphocytes (CBC) 1.8 K/uL (0.7-4.9); Basophils % 0.3 % (0-1.3); Lymphocytes % 12.4 % (15.3-44.8); MPV 8.4 fL (7.6-11.3); RBC Red Blood Cell Count 4.13 M/uL (4.33-5.43)
[2020-09-09] MEDS: HYDROCODONE/APAP 7.5/325 MG TAB PO PRN ×2 (05:10→12:00)
[2020-09-09 05:23] LABS: BUN Blood Urea Nitrogen 8 mg/dL (7-18); Bicarbonate 28 mmol/L (21-32); Ferritin 292.7 ng/mL (26-388); Glucose Level 98 mg/dL (74-106); Magnesium 2.4 mg/dL (1.8-2.4); Potassium 4.4 mmol/L (3.5-5.1); Sodium Level 136 mmol/L (136-145)
[2020-09-09] MEDS: ENSURE CLEAR 200 ML CAN PO SCH (07:39)
[2020-09-09 09:37] VITALS: O2SAT 94
[2020-09-09 12:51] VITALS: BP 151/93; TEMP 98.1
== END 2020-09-09 13:37 | disposition home or self-care (01) | DRG 338 ==
LOC: ER 18:55 → ERHOLD 08-31 00:10 → 3RD-ICU 08-31 10:45
PROVIDERS: ADMIT Surgery; ATTEND Surgery
PROC: 0DTJ4ZZ Resection of Appendix, Percutaneous Endoscopic Approach (ICD-10-PCS; principal; 2020-08-31 07:00)
DX: K35.32 Acute appendicitis with perforation, localized peritonitis, and gangrene, without abscess (principal); U07.1 COVID-19; K56.7 Ileus, unspecified; I10 Essential (primary) hypertension; I25.2 Old myocardial infarction; E78.5 Hyperlipidemia, unspecified; F17.210 Nicotine dependence, cigarettes, uncomplicated; Z95.5 Presence of coronary angioplasty implant and graft
CPT/HCPCS: 36415; 71045; 74018; 74019; 74177; 80048; 80053; 80076; 81001; 82728; 83605; 83690; 83735; 84100; 84145; 85025; 86140; 87040; 88304; 94010; 96361; 96365; 96375; 97110; 97116; 97162; 97530; 99285; J1650; J2250; J2370; J2405; J2543; J2704; J3010; J7030; J7040; J7120; Q9967; U0003

== ENCOUNTER 2020-09-28 10:53 | Inpatient (IN) | payer BC ==
[2020-09-28 11:35] LABS: Absolute Lymphocytes (CBC) 1.9 K/uL (0.7-4.9); Basophils % 0.4 % (0-1.3); Hematocrit 35.1 % (39.6-49.0); MPV 8.4 fL (7.6-11.3); RBC Red Blood Cell Count 4.21 M/uL (4.33-5.43)
[2020-09-28] MEDS ORDERED: NA CHLORIDE 0.9% 1,000 ML ONE (11:38)
[2020-09-28 11:54] LABS: ALT/SGPT 13 U/L (12-78); AST/SGOT 11 U/L (15-37); Albumin 2.7 g/dL (3.4-5.0); Alkaline Phosphatase 92 U/L (45-117); BUN Blood Urea Nitrogen 14 mg/dL (7-18); Bicarbonate 27 mmol/L (21-32); Bilirubin Direct 0.2 mg/dL (0-0.2); Bilirubin Total 0.6 mg/dL (0.2-1.0); Glucose Level 130 mg/dL (74-106); Lipase 132 U/L (73-393); Potassium 3.8 mmol/L (3.5-5.1); Protein, Total 8.7 g/dL (6.4-8.2); Sodium Level 132 mmol/L (136-145)
[2020-09-28] MEDS ORDERED: ONDANSETRON 4 MG/2 ML VIAL ONE ×3 (12:15→18:28)
[2020-09-28] MEDS ORDERED: MORPHINE 4 MG/ML SYR ONE (12:15)
--- NOTE | 2020-09-28 12:24 | RAD REPORT ---
EXAM DESCRIPTION: CT - Abdomen Pelvis W Contrast - 09/28/2020 12:09 pm CLINICAL HISTORY: Abdominal pain COMPARISON: August 2020 TECHNIQUE: Computed axial tomography of the abdomen pelvis was obtained. 100 cc Isovue-300 was admin istered intravenously. Oral contrast was not requested which limits evaluation of bowel. All CT scans are performed using dose optimization technique as appropriate and may include automated exposure control or mA/KV adjustment according to patient size. FINDINGS: The liver, pancreas, adrenal and kidneys appear unremarkable. The splenic granulomata. Postsurgical changes of an appendectomy. A 12 x 4 x 5 centimeter fluid collection this present posterior to the bladder and anterior to the re ctum. It extends into the upper pelvis and contains air. An additional smaller fluid collection conta ining air extends into the right upper pelvis measuring 6 x 2 centimeters. Smaller fluid collection c ontaining air extends into the upper left pelvis Diverticula stem from the colon. No significant stranding adjacent to the sigmoid colon to suggest di verticulitis. Small inguinal hernias contain fat IMPRESSION: 12 x 4 x 5 centimeter pelvic abscess. Additional smaller pelvic abscesses
[2020-09-28 12:48] LABS: Blood Morphology Comment NOT SEEN (NOT SEEN); Platelet Estimate ADEQ
[2020-09-28] MEDS ORDERED: PIPER/TAZO/NS 3.375gm 3.375 GM/100 ML BAG ONE (13:34)
--- NOTE | 2020-09-28 13:57 | ER ---
Nurse's Notes [facility] Name: Louis Alvares Age: 55 yrs Sex: Male : 1965 Arrival Date: 09/28/2020 Time: 10:55 Bed 24 Private MD: Diagnosis: Pelvic Abscesses Presentation: 09/28 11:01 Chief complaint: Patient states: "I was here August 30 for appendicitis. and surgery on August jd3 10. I have been in recovery since then and I have not been feeling any better.". Coronavirus screen: At this time, the client does not indicate any symptoms associated with coronavirus-19. Ebola Screen: Patient negative for fever greater than or equal to 101.5 degrees Fahrenheit, and additional compatible Ebola Virus Disease symptoms. Initial Sepsis Screen: Does the patient meet any 2 criteria? No. Patient's initial sepsis screen is negative. Does the patient have a suspected source of infection? No. Patient's initial sepsis screen is negative. Risk Assessment: Do you want to hurt yourself or someone else? Patient reports no desire to harm self or others. Onset of symptoms was August 31, 2020. 11:01 Method Of Arrival: Ambulatory jd3 11:01 Acuity: DELPHINE 3 jd3 Historical: - Allergies: 11:04 No Known Allergies; jd3 - Home Meds: 11:04 None [Active]; jd3 - PMHx: 11:04 High Cholesterol; Hypertension; RI; jd3 - PSHx: 11:04 left hand; heart procedure-stent; Appendectomy; jd3 - Immunization history:: Adult Immunizations unknown. - Social history:: Smoking status: Patient/guardian denies using tobacco, Stopped _ months ago 6. Screenin:15 Abuse screen: Denies threats or abuse. Denies injuries from another. Nutritional ca1 screening: No deficits noted. Tuberculosis screening: No symptoms or risk factors identified. Fall Risk IV access (20 points). Assessment: 11:15 General: Appears in no apparent distress. comfortable, Behavior is calm, cooperative, ca1 appropriate for age. Pain: Complains of pain in suprapubic area Pain does not radiate. Pain currently is 6 out of 10 on a pain scale. 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 Neuro: Level of Consciousness is awake, alert, obeys commands, Oriented to person, place, time, situation. Cardiovascular: Heart tones S1 S2 present Capillary refill < 3 seconds Patient's skin is warm and dry. Respiratory: Airway is patent Respiratory effort is even, unlabored, Respiratory pattern is regular, symmetrical, Breath sounds are clear bilaterally. GI: Abdomen is round non-distended, Bowel sounds present X 4 quads. Abd is soft X 4 quads Abdomen is tender to palpation in suprapubic area and left lower quadrant Reports constipation. : No signs and/or symptoms were reported regarding the genitourinary system. EENT: No signs and/or symptoms were reported regarding the EENT system. Derm: Skin is intact, is healthy with good turgor, Skin is pink, warm \\T\\ dry. Musculoskeletal: Circulation, motion, and sensation intact. Capillary refill < 3 seconds. 12:26 Reassessment: Patient appears in no apparent distress at this time. Patient and/or ca1 family updated on plan of care and expected duration. Pain level reassessed. Patient is alert, oriented x 3, equal unlabored respirations, skin warm/dry/pink. 13:52 Reassessment: Patient appears in no apparent distress at this time. Patient and/or ca1 family updated on plan of care and expected duration. Pain level reassessed. Patient is alert, oriented x 3, equal unlabored respirations, skin warm/dry/pink. Dr. Capellan at bedside. 14:50 Reassessment: Patient appears in no apparent distress at this time. Patient and/or ca1 family updated on plan of care and expected duration. Pain level reassessed. Patient is alert, oriented x 3, equal unlabored respirations, skin warm/dry/pink. Vital Signs: 11:04 BP 120 / 93; Pulse 117; Resp 17 S; Temp 97.9(TE); Pulse Ox 99% on R/A; Weight 83.91 kg jd3 (R); Height 5 ft. 5 in. (165.10 cm) (R); Pain 5/10; 12:26 BP 122 / 76; Pulse 89; Resp 16 S; Pulse Ox 97% on R/A; ca1 13:52 BP 119 / 79; Pulse 76; Resp 16 S; Pulse Ox 99% on R/A; ca1 14:50 BP 117 / 83; Pulse 79; Resp 18 S; Pulse Ox 99% on R/A; ca1 11:04 Body Mass Index 30.79 (83.91 kg, 165.10 cm) jd3 ED Course: 10:55 Patient arrived in ED. as 11:02 Triage completed. jd3 11:05 Arm band placed on. jd3 11:06 Danielle Mortensen, [facility] is Primary Nurse. ca1 11:14 Inserted saline lock: 20 gauge in right antecubital area, using aseptic technique. ca1 Blood collected. 11:15 Navid Aldrich NP is PHCP. pm1 11:15 Jose M Estrada MD is Attending Physician. pm1 11:15 Patient has correct armband on for positive identification. Bed in low position. Call ca1 light in reach. Side rails up X 1. Pulse ox on. NIBP on. Warm blanket given. 11:17 Initial lab(s) drawn, by nv, sent to lab. ca1 12:10 CT Abd/Pelvis - IV Contrast Only In Process Unspecified. EDMS 12:52 First set of blood cultures drawn by me. ca1 13:54 Gene Capellan MD is Hospitalizing Provider. pm1 15:09 No provider procedures requiring assistance completed. Patient admitted, IV remains in ca1 place. Administered Medications: 11:20 Drug: NS 0.9% 1000 ml Route: IV; Rate: 1000 ml; Site: right antecubital; ca1 12:30 Follow up: Urine output 200 ml; Response: No adverse reaction; IV Status: Completed ca1 infusion; IV Intake: 1000ml 11:55 Drug: Zofran (Ondansetron) 4 mg Route: IVP; Site: right antecubital; ca1 13:23 Follow up: Response: No adverse reaction; Nausea is decreased ca1 11:57 Drug: morphine 4 mg {Note: rass 0.} Route: IVP; Site: right antecubital; ca1 13:23 Follow up: Response: No adverse reaction; Pain is decreased; RASS: Alert and Calm (0) ca1 13:23 Drug: Zosyn (piperacillin-tazobactam) 3.375 grams Route: IVPB; Infused Over: 60 mins; ca1 Site: right antecubital; 14:19 Follow up: Response: No adverse reaction; IV Status: Completed infusion; IV Intake: ca1 100ml Intake: 12:30 IV: 1000ml; Total: 1000ml. ca1 14:19 IV: 100ml; Total: 1100ml. ca1 Output: 12:30 Urine: 200ml; Total: 200ml. ca1 Outcome: 13:56 Decision to Hospitalize by Provider. pm1 15:09 Admitted to OR accompanied by nurse, via wheelchair, with chart, Report called to ca1 given to [facility] Duong 15:09 Condition: stable 15:09 Instructed on the need for admit. 15:11 Patient left the ED. ca1 Signatures: Dispatcher [employer] EDMS Vivi Mcconnell Patrick, RN TELEHEALTH RN TELEHEALTH pm1 Giles Molina, RN RN jd3 Danielle Mortensen RN RN ca1 Corrections: (The following items were deleted from the chart) 13:43 12:54 CORONAVIRUS+ drawn and sent. ca1 EDMS
--- NOTE | 2020-09-28 13:58 | EDPHYS ---
Physician Documentation [facility] Name: Louis Alvares Age: 55 yrs Sex: Male : 1965 Arrival Date: 09/28/2020 Time: 10:55 Bed 24 Private MD: ED Physician Jose M Estrada HPI: 09/28 11:22 This 55 yrs old Male presents to ER via Ambulatory with complaints of pm1 Abdominal Pain. 11:22 The patient presents with abdominal pain in the left lower quadrant. Onset: The pm1 symptoms/episode began/occurred 1 month(s) ago. The symptoms do not radiate. Associated signs and symptoms: Pertinent positives: constipation, Chills, Pertinent negatives: chest pain, shortness of breath, cough. The symptoms are described as achy. Modifying factors: The symptoms are alleviated by nothing, the symptoms are aggravated by nothing. Severity of pain: in the emergency department the pain is actually worse. The patient has been recently been admitted at [facility], patient with ruptured appendicitis surgery on August 31, 2020. Patient reports that he has recovered from the surgery yet. Historical: - Allergies: 11:04 No Known Allergies; jd3 - Home Meds: 11:04 None [Active]; jd3 - PMHx: 11:04 High Cholesterol; Hypertension; MT; jd3 - PSHx: 11:04 left hand; heart procedure-stent; Appendectomy; jd3 - Immunization history:: Adult Immunizations unknown. - Social history:: Smoking status: Patient/guardian denies using tobacco, Stopped _ months ago 6. ROS: 11:22 Cardiovascular: Negative for chest pain, palpitations, and edema, Respiratory: Negative pm1 for shortness of breath, cough, wheezing, and pleuritic chest pain. 11:22 Back: Negative for injury and pain, : Negative for injury, bleeding, discharge, and swelling, MS/Extremity: Negative for injury and deformity, Skin: Negative for injury, rash, and discoloration, Neuro: Negative for headache, weakness, numbness, tingling, and seizure. 11:22 Constitutional: Positive for body aches, chills, fever. 11:22 Abdomen/GI: Positive for abdominal pain, constipation, Negative for nausea and vomiting. 11:22 All other systems are negative. pm1 Exam: 11:22 Constitutional: This is a well developed, well nourished patient who is awake, alert, pm1 and in no acute distress. Head/Face: Normocephalic, atraumatic. 11:22 Skin: Warm, dry with normal turgor. Normal color with no rashes, no lesions, and no evidence of cellulitis. MS/ Extremity: Pulses equal, no cyanosis. Neurovascular intact. Full, normal range of motion. 11:22 Eyes: Periorbital structures: appear normal, Extraocular movements: no acute changes, Sclera: no acute changes, icterus, is not appreciated. 11:22 ENT: Mouth: Lips: normal, Oral mucosa: normal, pink and intact, moist. 11:22 Cardiovascular: Rate: normal, Rhythm: regular, Pulses: no pulse deficits are appreciated. 11:22 Respiratory: Exam negative for acute changes, respiratory distress, shortness of breath, Breath sounds: are clear throughout. 11:22 Abdomen/GI: Inspection: abdomen appears normal, Palpation: soft, in all quadrants, mild abdominal tenderness, in the left lower quadrant. 11:22 Neuro: Exam negative for acute changes, Orientation: is normal, Mentation: is normal, Motor: is normal, moves all fours. Vital Signs: 11:04 BP 120 / 93; Pulse 117; Resp 17 S; Temp 97.9(TE); Pulse Ox 99% on R/A; Weight 83.91 kg jd3 (R); Height 5 ft. 5 in. (165.10 cm) (R); Pain 5/10; 12:26 BP 122 / 76; Pulse 89; Resp 16 S; Pulse Ox 97% on R/A; ca1 13:52 BP 119 / 79; Pulse 76; Resp 16 S; Pulse Ox 99% on R/A; ca1 14:50 BP 117 / 83; Pulse 79; Resp 18 S; Pulse Ox 99% on R/A; ca1 11:04 Body Mass Index 30.79 (83.91 kg, 165.10 cm) jd3 MDM: 11:39 Patient medically screened. pm1 12:31 Data reviewed: vital signs. Data interpreted: Pulse oximetry: on room air is 99 %. pm1 Interpretation: normal. 12:36 Physician consultation: Gene Capellan MD was called at 12:36, was contacted at 12:36, pm1 regarding consult, patient's condition, and will see patient in ED, shortly, would like consultation with Dr. BROWN. Would like me to contact radiology to see if they would be able to assist with drainage of abscess. 13:00 Counseling: I had a detailed discussion with the patient and/or guardian regarding: the pm1 historical points, exam findings, and any diagnostic results supporting the discharge/admit diagnosis, lab results, radiology results, the need for further work-up and treatment in the hospital. 13:00 Physician consultation: Sukhdev Boucher MD regarding consult, Unable to percutaneously pm1 drain the abscess since it is loculated and has 3 to 4 components and it will require surgical intervention. 13:54 Physician consultation: Gene Capellan MD in the emergency department to see patient at pm1 13:54. 09/28 11:16 Order name: Basic Metabolic Panel; Complete Time: 12:22 pm09/28 11:16 Order name: CBC with Diff pm1 09/28 11:16 Order name: Hepatic Function; Complete Time: 12:22 pm1 09/28 11:16 Order name: Lipase; Complete Time: 12:22 pm1 09/28 12:30 Order name: Blood Culture Adult (2) pm1 09/28 12:48 Order name: Manual Differential EDMS 09/28 14:00 Order name: Basic Metabolic Panel EDMS 09/28 14:00 Order name: Basic Metabolic Panel EDMS 09/28 14:00 Order name: CBC with Automated Diff EDMS 09/28 14:00 Order name: CBC with Automated Diff EDMS 09/28 14:00 Order name: Liver (Hepatic) Function EDMS 09/28 14:00 Order name: Liver (Hepatic) Function EDMS 09/28 15:09 Order name: SARS-COV-2 RT PCR; Complete Time: 15:24 EDMS 09/28 11:16 Order name: IV Saline Lock; Complete Time: 11:17 pm09/28 11:16 Order name: Labs collected and sent; Complete Time: 11:17 pm09/28 11:16 Order name: CT Abd/Pelvis - IV Contrast Only; Complete Time: 12:30 pm1 09/28 14:00 Order name: NPO EDMS Administered Medications: 11:20 Drug: NS 0.9% 1000 ml Route: IV; Rate: 1000 ml; Site: right antecubital; ca1 12:30 Follow up: Urine output 200 ml; Response: No adverse reaction; IV Status: Completed ca1 infusion; IV Intake: 1000ml 11:55 Drug: Zofran (Ondansetron) 4 mg Route: IVP; Site: right antecubital; ca1 13:23 Follow up: Response: No adverse reaction; Nausea is decreased ca1 11:57 Drug: morphine 4 mg {Note: rass 0.} Route: IVP; Site: right antecubital; ca1 13:23 Follow up: Response: No adverse reaction; Pain is decreased; RASS: Alert and Calm (0) ca1 13:23 Drug: Zosyn (piperacillin-tazobactam) 3.375 grams Route: IVPB; Infused Over: 60 mins; ca1 Site: right antecubital; 14:19 Follow up: Response: No adverse reaction; IV Status: Completed infusion; IV Intake: ca1 100ml Disposition: 09/29 07:02 Co-signature as Attending Physician, Jose M Estrada MD. rn Disposition: 09/28/20 13:56 Hospitalization ordered by Gene Capellan for Inpatient Admission. Preliminary diagnosis is Pelvic Abscesses. - Bed requested for Telemetry/MedSurg (Inpatient). - Status is Inpatient Admission. ca1 - Condition is Stable. - Problem is new. - Symptoms have improved. Signatures: Dispatcher [employer] EDRI Jose M Estrada MD MD rn Marinas, Patrick, WHIZZER OPERATOR WHIZZER OPERATOR pm1 Giles Molina RN RN jd3 Danielle Mortensen RN RN ca1 Corrections: (The following items were deleted from the chart) 09/28 13:43 12:31 CORONAVIRUS+MR.LAB.BRZ ordered. [facility] 15:11 13:56 Hospitalization Ordered by Gene Capellan MD for Inpatient Admission. Preliminary ca1 diagnosis is Pelvic Abscesses. Bed requested for Telemetry/MedSurg (Inpatient). Status is Inpatient Admission. Condition is Stable. Problem is new. Symptoms have improved. pm1
[2020-09-28] MEDS ORDERED: D5 0.45 NS 1,000 ML IV SCH (14:00)
[2020-09-28] MEDS ORDERED: Ringers Lactate 1,000 ML IV ONE (15:48)
[2020-09-28] MEDS ORDERED: SUCCINYLCHOLINE 20 MG/ML (10 ML) IV ONE (16:07)
--- NOTE | 2020-09-28 16:08 | P.HP ---
Date of Service: 09/28/20 PC: This 55-year-old male was sent to the emergency room for evaluation of his abdominal pain. HPC: This patient, with seen by me about 2 weeks ago. At that time he was found to have an acute abdomen. He was brought to the operating room or ruptured appendix was found. An appendectomy was performed, it should be noted that the appendix was actually detached completely from the base of the cecum. At that time he was washed out, and a Stiven-Solroio was placed. He was discharged home on p.o. antibiotics. He has been followed by me in my office for the last 2 weeks. He has had failure to thrive. While he does not have any peritoneal signs, he continues to look unwell and is not making any progress. I sent to the ER for evaluation as AE abscess was strongly suspected. He does indeed have a pelvic abscess that has formed. After discussion with the radiologist it was felt that the best course of treatment was a surgical drainage of the abscess. PMH: Negative PSHx: Appendectomy as mentioned SOC: Allergies SYS REVIEW: No cough, wheeze, shortness of breath. No chest pain or palpitations. While he did feel better initially and after having have his appendix taken out, over the last few days he has felt on well, and has had a few fevers and chills. He is also having difficulty urinating and has a feeling of fullness after he goes to the restroom. O/E awake alert uncomfortable HEENT: Within normal limits Chest: Chest movement equal bilaterally ABD: Abdomen is soft, nontender no localizing signs LOCO: Intact DATA: Elevated white cell count, CT scan demonstrates pelvic abscess IMPRESSION: Pelvic abscess status post ruptured appy PLAN: I will take him the operating room for a drainage of this abscess. The risks of the procedure have been discussed. The possibility of bleeding, infection, injury to bowel and surrounding structures were outlined. Wound infections hernias were described. He understands and wants us to proceed.
[2020-09-28] MEDS ORDERED: propofoL 200 MG/20 ML VIAL IV ONE (16:17)
[2020-09-28] MEDS ORDERED: LIDOCAINE 1% MPF 2 ML AMPULE ONE (16:18)
[2020-09-28] MEDS ORDERED: FENTANYL CITR 100 MCG/2 ML ONE ×2 (16:19→16:57)
[2020-09-28] MEDS ORDERED: ROCURONIUM 50 MG/5 ML VIAL IV ONE (16:35)
[2020-09-28] MEDS ORDERED: dexAMETHasone 10 MG/ML VIAL ONE (16:37)
[2020-09-28] MEDS ORDERED: KETOROLAC 30 MG/ML INJ ONE (16:37)
[2020-09-28] MEDS ORDERED: Phenylephrine HCl 10 MG/ML 1 ML VIAL ONE (16:44)
[2020-09-28] MEDS ORDERED: NEOSTIGMINE 1 MG/ML -5 ML ONE (16:56)
[2020-09-28] MEDS ORDERED: GLYCOPYRROLATE 0.2 MG/ML SYR ONE (16:56)
--- NOTE | 2020-09-28 17:49 | P.OP ---
Preoperative diagnosis: Pelvic abscess Postoperative diagnosis: The same Primary procedure: Laparoscopy, lysis of adhesions Secondary procedure: Laparotomy and drainage of pelvic abscess Anesthesia: General Estimated blood loss: Less than 20 cc Specimen: Cultures both a aerobic and anaerobic were taken Operative Technique: The patient brought the operating room and placed supine on the table. After the induction of adequate general endotracheal anesthesia, there the abdomen was prepped with a DuraPrep solution, a Zheng catheter was inserted, and he was draped in usual aseptic manner. A left upper quadrant skin incision was made. This was brought down through the skin and subcutaneous tissue. The Visiport was now used to enter the peritoneal cavity and created pneumoperitoneum to approximately 12 mm of mercury. We were able to visualize the peritoneal cavity. We could see there were lot of soft adhesions of the bowel and omentum to the anterior abdominal wall. These adh esions were gently taken down using blunt dissection with the camera. Superior there were some adhesions to the anterior abdominal wall of the omentum. A 5 mm trocar was placed on the right side of the abdomen. We were now able to place a dissected and Silviano gently take the bald bowel down from the anterior abdominal wall. The midline was cleared of some soft adhesions of the bowel between the emboli kiss in the superior portion of the bladder. Around the rim of the true pelvis anteriorly the omentum was actually sealing off the pelvis with the rest the peritoneal cavity. At this point we could no longer dissect carefully with just the IP and we opened the peritoneal cavity. Having cleared the midline we could now use retractors in visualize the true pelvis. Gentle dissection was begun to remove the adhesions of the omentum to the anterior abdominal wall. We were able to get into a space a lattice to travel down into the true pelvis and open up this area between the bladder and the sigmoid colon. This having mean down we encounter a large amount of thick purulent material. Cultures both a aerobic and anaerobic were taken of this. The area was then irrigated with a saline solution. A Stiven-Solorio drain was placed into the depths of this cavity and brought out through a separate left lower quadrant skin incision. The drain was anchored to the skin. We continue to drain the irrigating fluid until the effluent was clear. At this point attention was turned towards the rest of the peritoneal cavity. These adhesions were gently taken down anteriorly. The small bowel was examined and no other interloop abscess sees were noted. At this point the midline incision was closed using with a running suture of looped PDS. Reinforced the emboli kiss AE Endo Close was used to approximate the fashion this area. A good watertight closure having been obtained, the pneumoperitoneum was collapsed after having taken 1 further look with the scope to ensure there was no bowel caught anteriorly. The scope was removed, the pneumoperitoneum collapse, and erin were loosely applied to the skin. We placed iodoform gauze in the wound is well to keep the place open and draining during the postoperative period. At the end of the procedure he was in a stable condition when sent to the recovery room. Needle sponge instrument count were correct. 1 PRATIK drain was placed. Complications: None Drain(s): PRATIK drain Transferred to: Recovery Room Condition: Good
[2020-09-28] MEDS: Ringers Lactate 1,000 ML IV SCH ×2 (18:00→20:10)
[2020-09-28] MEDS: FENTANYL CITR 100 MCG/2 ML ONE ×2 (18:12→18:17)
[2020-09-28] MEDS: HYDROMORPHONE HCL 1 MG/ML INJ ONE ×6 (18:20→18:35)
[2020-09-28] MEDS: Levofloxacin500mg IV 500 MG/100 ML BAG IV SCH (20:09)
[2020-09-28] MEDS: METRONIDAZOLE 500mg IVPB 500 MG/100 ML BAG IV SCH (20:11)
[2020-09-28 23:15] VITALS: BMI 30.7
[2020-09-29] MEDS: METRONIDAZOLE 500mg IVPB 500 MG/100 ML BAG IV SCH ×3 (01:56→16:26)
[2020-09-29] MEDS: Ringers Lactate 1,000 ML IV SCH ×4 (04:50→20:13)
[2020-09-29] MEDS: HYDROCODONE/APAP 7.5/325 MG TAB PO PRN ×3 (04:54→18:47)
[2020-09-29 06:35] LABS: Absolute Lymphocytes (CBC) 1.3 K/uL (0.7-4.9); Basophils % 0.4 % (0-1.3); Hematocrit 30.6 % (39.6-49.0); Lymphocytes % 10.3 % (15.3-44.8); MPV 8.4 fL (7.6-11.3)
--- NOTE | 2020-09-29 08:53 | P.PN ---
Date of Service: 09/29/20 S: Patient feels better today, has minimal incisional pain. O: Vital signs are stable, 60 cc out through to PRATIK drain. Voiding on his own this time. Incision is clean, packing removed A : Surgically stable status post exploratory laparotomy with drainage of pelvic abscess. P: Continue current therapy, advanced diet, ambulate today, anticipate discharge in a.m..
[2020-09-29] MEDS: Levofloxacin500mg IV 500 MG/100 ML BAG IV SCH (20:07)
[2020-09-30] MEDS: HYDROCODONE/APAP 7.5/325 MG TAB PO PRN ×4 (00:49→20:10)
[2020-09-30] MEDS: METRONIDAZOLE 500mg IVPB 500 MG/100 ML BAG IV SCH ×3 (00:49→16:19)
[2020-09-30] MEDS: Ringers Lactate 1,000 ML IV SCH (06:58)
[2020-09-30] MEDS: Levofloxacin500mg IV 500 MG/100 ML BAG IV SCH (16:47)
[2020-09-30] MEDS ORDERED: MINERAL OIL 30 ML UCUP PO ONE (20:00)
[2020-10-01] MEDS: METRONIDAZOLE 500mg IVPB 500 MG/100 ML BAG IV SCH ×3 (01:00→16:59)
[2020-10-01] MEDS: HYDROCODONE/APAP 7.5/325 MG TAB PO PRN ×4 (01:40→20:41)
[2020-10-01 05:08] LABS: Absolute Lymphocytes (CBC) 2.1 K/uL (0.7-4.9); Basophils % 0.9 % (0-1.3); Lymphocytes % 16.6 % (15.3-44.8); MPV 8.4 fL (7.6-11.3)
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
--- NOTE | 2020-10-01 17:47 | P.PN ---
Date of Service: 10/01/20 S: Patient states he is feeling better, has been up ambulating, having regular bowel movements. O: Clinically looks well today, abdomen is soft, minimal out through PRATIK drain. He grew MRI stay out of culture from the pelvic abscess. A continues to improve P: I last by hospitalist colleagues to review the case, and make recommend ations for IV antibiotics. MRSA is a surprising pathogen. Anticipate patient being in the hospital for few more to it, and being discharged on oral medication.
[2020-10-01] MEDS: VANCOMYCIN 1.5 GM in NA CHLORIDE 0.9% 500 ML IVPB SCH ×2 (18:31→20:45)
[2020-10-02] MEDS: HYDROCODONE/APAP 7.5/325 MG TAB PO PRN ×4 (02:31→22:27)
[2020-10-02 05:45] LABS: Absolute Lymphocytes (CBC) 1.7 K/uL (0.7-4.9); Basophils % 0.9 % (0-1.3); Hematocrit 30.2 % (39.6-49.0); Lymphocytes % 12.2 % (15.3-44.8); MPV 8.7 fL (7.6-11.3)
[2020-10-02 06:05] LABS: BUN Blood Urea Nitrogen 9 mg/dL (7-18); Bicarbonate 25 mmol/L (21-32); Glucose Level 86 mg/dL (74-106); Sodium Level 137 mmol/L (136-145)
[2020-10-02] MEDS: METRONIDAZOLE 500mg IVPB 500 MG/100 ML BAG IV SCH ×3 (08:55→16:16)
[2020-10-02 09:50] VITALS: O2SAT 96
[2020-10-02] MEDS: VANCOMYCIN 1.5 GM in NA CHLORIDE 0.9% 500 ML IVPB SCH ×2 (10:00→19:52)
--- NOTE | 2020-10-02 16:29 | P.PN ---
Subjective Date of Service: 10/02/20 Chief Complaint: abdominal pain, intrabdominal abscess Subjective: No new changes (feels ok, ate dinner, pain is about the same, feels its more soreness on abdominal wall from surgeries. voiding, +flatus, no nausea) Review of Systems 10-point ROS is otherwise unremarkable Physical Examination - Vital Signs Temperature: 100.5 F Blood Pressure: 130/70 Pulse: 82 Respirations: 20 Pulse Ox (%): 95 Assessment & Plan Physician Review Additional Text: Physical Exam General: Alert, In no apparent distress, Oriented x3 HEENT: EOMI, Sclerae nonicteric Respiratory: Clear to auscultation bilaterally, Normal air movement Cardiovascular: No edema, Regular rate/rhythm Gastrointestinal: Soft and benign, Non-distended, Tenderness (left-sided), abd binder in place Musculoskeletal: No erythema, No tenderness Problem List pelvic abscess s/p appendectomy for appendicitis MRSA + intrabdominal abscess without bacteremia CAD s/p stent -patient seems to be slowly improving clinically after drainage of abscess, has been ambulating and voiding -pain control per surgery -MRSA in abscess culture -started IV Vancomycin on 10/01, would benefit from at least 1 if not 2 days of IV treatment -sensitivities reviewed, may be able to transition to PO bactrim on discharge -will need at least 7-10 days of antibiotic coverage, longer if abscess persists -continue empiric anaerobic coverage with flagyl as well -discussed with Dr. Capellan Dispo: anticipate dc home tomorrow if continues to improve Time Spent Managing Pts Care (In Minutes): 35
[2020-10-03] MEDS: METRONIDAZOLE 500mg IVPB 500 MG/100 ML BAG IV SCH ×3 (00:21→17:18)
[2020-10-03] MEDS: HYDROCODONE/APAP 7.5/325 MG TAB PO PRN ×4 (05:13→22:51)
[2020-10-03 05:26] LABS: Absolute Lymphocytes (CBC) 1.9 K/uL (0.7-4.9); Basophils % 0.7 % (0-1.3); Hematocrit 31.3 % (39.6-49.0); Lymphocytes % 12.5 % (15.3-44.8); RBC Red Blood Cell Count 3.74 M/uL (4.33-5.43)
[2020-10-03 05:39] LABS: ALT/SGPT 12 U/L (12-78); AST/SGOT 7 U/L (15-37); Albumin 2.2 g/dL (3.4-5.0); Alkaline Phosphatase 61 U/L (45-117); BUN Blood Urea Nitrogen 8 mg/dL (7-18); Bicarbonate 27 mmol/L (21-32); Bilirubin Total 0.3 mg/dL (0.2-1.0); Glucose Level 100 mg/dL (74-106); Sodium Level 137 mmol/L (136-145)
--- NOTE | 2020-10-03 09:42 | P.PN ---
Subjective Date of Service: 10/03/20 Chief Complaint: abdominal pain, intrabdominal abscess Subjective: No new changes (feeling improved, ambulating quite a bit, +flatus, still no BM febrile yesterday, leukocytosis worse today) Review of Systems 10-point ROS is otherwise unremarkable Physical Examination - Vital Signs Temperature: 98.6 F Blood Pressure: 123/82 Pulse: 74 Respirations: 19 Pulse Ox (%): 97 Assessment & Plan Physician Review Additional Text: Physical Exam General: Alert, In no apparent distress HEENT: EOMI, Sclerae nonicteric Respiratory: Clear to auscultation bilaterally, Normal air movement Cardiovascular: No edema, Regular rate/rhythm Gastrointestinal: Soft and benign, Non-distended, Tenderness (left-sided), abd binder in place, PRATIK drain with minimal serosanguineous output Musculoskeletal: No erythema, No tenderness Problem List pelvic abscess s/p appendectomy for appendicitis MRSA + intrabdominal abscess without bacteremia CAD s/p stent -patient seems to be slowly improving after drainage of abscess, has been ambulating and voiding -pain control per surgery -MRSA in abscess culture -started IV Vancomycin on 10/01, sensitivities reviewed, may be able to transiti on to PO bactrim on discharge -will need at least 7-10 days of antibiotic coverage, longer if abscess persists -continue empiric anaerobic coverage with flagyl as well -leukocytosis worsening, febrile yesterday Dispo: anticipate dc home tomorrow if remains afebrile, and leukocytosis improves Time Spent Managing Pts Care (In Minutes): 35
[2020-10-03] MEDS: VANCOMYCIN 1.5 GM in NA CHLORIDE 0.9% 500 ML IVPB SCH ×2 (09:56→20:24)
[2020-10-03] MEDS: DOCUSATE NA 100 MG CAP PO SCH ×2 (12:08→20:46)
[2020-10-04] MEDS: METRONIDAZOLE 500mg IVPB 500 MG/100 ML BAG IV SCH ×2 (00:40→08:03)
[2020-10-04 05:58] LABS: Absolute Lymphocytes (CBC) 2.3 K/uL (0.7-4.9); Basophils % 1.1 % (0-1.3); Hematocrit 30.8 % (39.6-49.0); Lymphocytes % 17.8 % (15.3-44.8); MPV 8.3 fL (7.6-11.3); RBC Red Blood Cell Count 3.68 M/uL (4.33-5.43)
[2020-10-04] MEDS ORDERED: POLYETHYL GLY 3350 17 GM/DOSE PO PRN (07:20)
[2020-10-04] MEDS: DOCUSATE NA 100 MG CAP PO SCH (08:03)
[2020-10-04 09:10] VITALS: BP 120/74; TEMP 98.4
[2020-10-04] MEDS: VANCOMYCIN 1.5 GM in NA CHLORIDE 0.9% 500 ML IVPB SCH (09:11)
[2020-10-04] MEDS: HYDROCODONE/APAP 7.5/325 MG TAB PO PRN (11:18)
--- NOTE | 2020-10-04 17:16 | P.DS ---
Admission Date: 09/28/20 Discharge Date: 10/04/20 Disposition: ROUTINE DISCHARGE Discharge Condition: GOOD Reason for Admission: abdominal pain, intrabdominal abscess Consultations: General Surgery - Dr. Capellan Procedures: CT Abd/pelvis (09/28): FINDINGS: The liver, pancreas, adrenal and kidneys appear unremarkable. The splenic granulomata. Postsurgical changes of an appendectomy. A 12 x 4 x 5 centimeter fluid collection this present posterior to the bladder and anterior to the rectum. It extends into the upper pelvis and contains air. An additional smaller fluid collection containing air extends into the right upper pelvis measuring 6 x 2 centimeters. Smaller fluid collection containing air extends into the upper left pelvis Diverticula stem from the colon. No significant stranding adjacent to the sigmoid colon to suggest diverticulitis. Small inguinal hernias contain fat IMPRESSION: 12 x 4 x 5 centimeter pelvic abscess. Additional smaller pelvic abscesses Laparoscopic drainage of pelvic abscess (09/28): by Dr. Capellan Problem List pelvic abscess s/p appendectomy for appendicitis MRSA + intrabdominal abscess without bacteremia CAD s/p stent Brief History of Present Illness: 55yo M, presented to ED with abdominal pain. He was ~2 weeks s/p appendectomy for appendicitis (noted to be detached completely from the base of the cecum). He had failure to thrive and was not lookinig well. In the ER, evaluation revealed pelvic abscess formation. He was admitted for surgical drainage. Hospital Course: He did well post-operatively. Surgical cultures were obtained and grew MRSA. Patient's blood cultures remained negative. He received 2 days of IV vancomycin & flagyl and discharged home with Bactrim and flagyl x 12 days. On day of discharge his leukocytosis was downtrending, afebrile x24hrs, passing flatus, ambulating, appetite improved, and pain controlled with PO medication. He is to follow up with Dr. Capellan early this coming week. Vital Signs/Physical Exam: Physical Exam General: Alert, In no apparent distress HEENT: EOMI, Sclerae nonicteric Respiratory: Clear to auscultation bilaterally, Normal air movement Cardiovascular: No edema, Regular rate/rhythm Gastrointestinal: Soft and benign, Non-distended, Tenderness (left-sided), abd binder in place Musculoskeletal: No erythema, No tenderness Temp Pulse Resp BP Pulse Ox 98.4 F 78 21 H 120/74 93 06/13/21 08:00 10/04/20 08:00 10/04/20 08:00 10/04/20 08:00 10/04/20 08:00 Laboratory Data at Discharge: WBC 13.00 K/uL (4.3-10.9) H D 10/04/20 05:33 Hgb 10.0 g/dL (13.6-17.9) L 10/04/20 05:33 Hct 30.8 % (39.6-49.0) L 10/04/20 05:33 Plt Count 382 K/uL (152-406) 10/04/20 05:33 Sodium 137 mmol/L (136-145) 10/03/20 05:11 Potassium 4.0 mmol/L (3.5-5.1) 10/03/20 05:11 BUN 8 mg/dL (7-18) 10/03/20 05:11 Creatinine 0.56 mg/dL (0.55-1.3) 10/03/20 05:11 Glucose 100 mg/dL (74-106) 10/03/20 05:11 Total Bilirubin 0.3 mg/dL (0.2-1.0) 10/03/20 05:11 AST 7 U/L (15-37) L 10/03/20 05:11 ALT 12 U/L (12-78) 10/03/20 05:11 Alkaline Phosphatase 61 U/L (45-117) 10/03/20 05:11 Lipase 132 U/L (73-393) 09/28/20 11:20 Home Medications: Docusate [Colace Cap*] 100 mg PO DAILY 30 Days #30 cap 10/04/20 Sulfamethoxazole/Trimethoprim [Bactrim Ds Tablet] 1 each PO BID 8 Days #16 tablet 10/04/20 metroNIDAZOLE [Flagyl] 500 mg PO Q8H 8 Days #24 tablet 10/04/20 New Medications: Sulfamethoxazole/Trimethoprim [Bactrim Ds Tablet] 1 each PO BID 8 Days #16 tablet Docusate [Colace Cap*] 100 mg PO DAILY 30 Days #30 cap metroNIDAZOLE [Flagyl] 500 mg PO Q8H 8 Days #24 tablet Physician Discharge Instructions: PROBLEM: abscess GOAL:decrease infection INSTRUCTIONS:continue with antibiotics ordered, follow up with Marilia as ordered, may take miralax as outpatient for assistance with bowel movements. Diet: Regular Activity: Ad bebo DME DME: Date Ordered: Name of Company: [employer] Services Needed: None Name of Company: Date or Referral: IMMUNIZATION Influenza Vaccine Indicated: Influenza Vaccine Given: Date Given: Pneumonia Vaccine Indicated: No Pneumonia Vaccine Given: Date Given: Diet: Regular Activity: Ad bebo Followup: Gene Capellan MD [Primary Care Provider] - Time spent managing pt's care (in minutes): 45
== END 2020-10-04 11:45 | disposition home or self-care (01) | DRG 858 ==
LOC: ER 10:53 → ERHOLD 13:58 → 2ND 17:08 → 3RD-ICU 20:33
PROVIDERS: ADMIT Surgery; ATTEND Surgery
PROC: 0WJJ4ZZ Inspection of Pelvic Cavity, Percutaneous Endoscopic Approach (ICD-10-PCS; principal; 2020-09-28 14:45)
PROC: 0W9J0ZZ Drainage of Pelvic Cavity, Open Approach (ICD-10-PCS; 2020-09-28 14:45)
DX: T81.49XA Infection following a procedure, other surgical site, initial encounter (principal); K68.11 Postprocedural retroperitoneal abscess; B95.62 Methicillin resistant Staphylococcus aureus infection as the cause of diseases classified elsewhere; I25.10 Atherosclerotic heart disease of native coronary artery without angina pectoris; Z95.5 Presence of coronary angioplasty implant and graft; F17.210 Nicotine dependence, cigarettes, uncomplicated; Z86.16 Personal history of COVID-19
CPT/HCPCS: 36415; 74177; 80048; 80053; 80076; 80202; 83690; 85025; 87040; 87070; 87075; 87077; 87186; 87205; 94010; 96361; 96365; 96375; 99285; J0330; J1100; J1170; J2370; J2405; J2543; J2704; J2710; J3010; J3370; J7030; J7040; J7120; Q9967; U0003

== ENCOUNTER 2020-11-30 11:16 | Observation (INO) | payer BC ==
[2020-11-30 13:47] LABS: Absolute Lymphocytes (CBC) 1.9 K/uL (0.7-4.9); Basophils % 0.6 % (0-1.3); Hematocrit 38.6 % (39.6-49.0); MPV 7.8 fL (7.6-11.3); RBC Red Blood Cell Count 4.68 M/uL (4.33-5.43)
--- NOTE | 2020-11-30 13:54 | RAD REPORT ---
EXAM DESCRIPTION: CT - Angio Aorta For Dissection - 11/30/2020 1:40 pm CLINICAL HISTORY: HTN, LLE pain and mottling COMPARISON: Abdomen Pelvis W Contrast dated 09/28/2020 FINDINGS: Thorax: The thyroid nodules. No axillary mediastinal lymphadenopathy. No aortic aneurysm i s identified. No pulmonary embolus is seen. Coronary artery calcification and/or stent. No suspicious pulmonary nodules are identified. No evidence of either edema or pneumonia. Abdomen/ pelvis: No focal liver lesions are identified however there is nodularity along the liver ca psule along its right inferior margin. Gallbladder is unremarkable. Adrenal glands unremarkable. The pancreas is unremarkable. The spleen is unremarkable. The kidneys are within normal limits. There is irregular masslike enhancement in the cecum with prominent adjacent omental nodularity. For example, there is a nodule in the right paracolic gutter measuring 2.4 cm. In the greater omentum in the left hemiabdomen, there is a nodule measuring 2 centimeters. No bowel obstruction is identified. There is abnormal thickening of the terminal ileum which is likely reactive. There are likely implants of tumo r on the small bowel at this location. Laparotomy defect. Nonspecific circumferential bladder wall th ickening which could be secondary to cystitis or chronic bladder outlet obstruction. IMPRESSION: Masslike thickening at the cecum with mesenteric and omental nodularity concerning for colonic adenoc arcinoma and peritoneal spread of disease. No bowel obstruction at this time.
[2020-11-30 13:59] LABS: BUN Blood Urea Nitrogen 16 mg/dL (7-18); Bicarbonate 25 mmol/L (21-32); Glucose Level 101 mg/dL (74-106); Potassium 4.5 mmol/L (3.5-5.1); Sodium Level 134 mmol/L (136-145)
[2020-11-30 14:13] LABS: Protime INR 1.06
--- NOTE | 2020-11-30 14:45 | ER ---
Nurse's Notes [facility] Name: Louis Alvares Age: 55 yrs Sex: Male : 1965 Arrival Date: 11/30/2020 Time: 11:44 Bed 13 Private MD: Diagnosis: Acute embolism and thrombosis of other specified deep vein of left lower extremity;Possible colon cancer Presentation: 11/30 12:15 Chief complaint: Patient states: Left leg/thigh swelling x 1 day. Coronavirus screen: iw Client denies travel out of the [place] in the last 14 days. At this time, unable to obtain information related to travel outside the [place] At this time, the client does not indicate any symptoms associated with coronavirus-19. Ebola Screen: Patient negative for fever greater than or equal to 101.5 degrees Fahrenheit, and additional compatible Ebola Virus Disease symptoms Patient denies exposure to infectious person. Patient denies travel to an Ebola-affected area in the 21 days before illness onset. Initial Sepsis Screen: Does the patient meet any 2 criteria? No. Patient's initial sepsis screen is negative. Does the patient have a suspected source of infection? No. Patient's initial sepsis screen is negative. Risk Assessment: Do you want to hurt yourself or someone else? Patient reports no desire to harm self or others. Onset of symptoms was November 29, 2020. 12:15 Method Of Arrival: Ambulatory iw 12:15 Acuity: DELPHINE 3 iw Historical: - Allergies: 12:15 No Known Allergies; iw - Home Meds: 12:15 None [Active]; iw - PMHx: 12:15 High Cholesterol; Hypertension; ME; iw - PSHx: 12:15 Appendectomy; Abdominal abcess; iw - Immunization history:: Adult Immunizations up to date. - Family history:: not pertinent. - Social history:: Smoking status: unknown. - Hospitalizations: : No recent hospitalization is reported. Screenin:27 Abuse screen: Denies threats or abuse. Nutritional screening: No deficits noted. vg1 Tuberculosis screening: No symptoms or risk factors identified. Fall Risk No fall in past 12 months (0 pts). No secondary diagnosis (0 pts). IV access (20 points). Ambulatory Aid- None/Bed Rest/Nurse Assist (0 pts). Gait- Normal/Bed Rest/Wheelchair (0 pts) Mental Status- Oriented to own ability (0 pts). Total Aguirre Fall Scale indicates No Risk (0-24 pts). Assessment: 12:57 General: Appears in no apparent distress. comfortable, Behavior is calm, cooperative. vg1 Pain: Complains of pain in left leg Pain currently is 7 out of 10 on a pain scale. Pain began 1 day ago. Neuro: Level of Consciousness is awake, alert, obeys commands, Oriented to person, place, time, situation. Cardiovascular: Patient's skin is warm and dry. Respiratory: Airway is patent Respiratory effort is even, unlabored, Denies cough, shortness of breath pain with respiration. GI: Patient currently denies nausea, vomiting. : No signs and/or symptoms were reported regarding the genitourinary system. EENT: No signs and/or symptoms were reported regarding the EENT system. Derm: Skin is intact, Skin is pale, Skin temperature is cool LEFT LEG. Musculoskeletal: Capillary refill is > 3 seconds, in left toes. 15:30 Reassessment: Patient appears in no apparent distress at this time. No changes from vg1 previously documented assessment. Patient and/or family updated on plan of care and expected duration. Pain level reassessed. Patient is alert, oriented x 3, equal unlabored respirations, skin warm/dry/pink. 17:29 Reassessment: Patient appears in no apparent distress at this time. Patient and/or vg1 family updated on plan of care and expected duration. Pain level reassessed. Patient is alert, oriented x 3, equal unlabored respirations, skin warm/dry/pink. Pt states left thigh pain. States 'feels like tension'. Rated pain 9/10, Provider notified. Vital Signs: 12:15 Temp 97.9(TE); Weight 83.91 kg; Height 5 ft. 5 in. (165.10 cm); iw 13:00 BP 112 / 84; Pulse 90; Resp 16; Pulse Ox 100% ; vg1 14:50 BP 110 / 61; Pulse 84; Resp 16; Pulse Ox 100% ; vg1 15:30 BP 117 / 84; Pulse 86; Resp 12; Pulse Ox 100% ; vg1 16:00 BP 97 / 70; Pulse 72; Resp 14; Pulse Ox 99% ; vg1 17:00 BP 98 / 71; Pulse 86; Resp 14; Pulse Ox 100% ; vg1 12:15 Body Mass Index 30.79 (83.91 kg, 165.10 cm) iw ED Course: 11:44 Patient arrived in ED. mr 12:12 Jose M Estrada MD is Attending Physician. rn 12:15 Triage completed. iw 12:56 Kathy Alvares, RN is Primary Nurse. vg1 13:00 EKG done, by ED staff, reviewed by Jose M Estrada MD. vg1 13:24 Initial lab(s) drawn, by me, sent to lab. Missed attempt(s): 22 gauge in right vg1 antecubital area. 13:27 Arm band placed on. vg1 13:27 Patient has correct armband on for positive identification. Placed in gown. Bed in low vg1 position. Call light in reach. Side rails up X 1. 13:30 Inserted saline lock: 22 gauge in right antecubital area, using aseptic technique. vg1 ,using aseptic technique. Completed by [employer]. 13:40 CT Aorta for Dissection In Process Unspecified. EDMS 14:14 Extremity Venous Uni Ltd US In Process Unspecified. EDMS 14:22 Lower Extremity Artery Uni Ltd US In Process Unspecified. EDMS 14:44 Ricardo Gonzalez MD is Hospitalizing Provider. rn 19:23 No provider procedures requiring assistance completed. Patient admitted, IV remains in vg1 place. Administered Medications: 15:00 Drug: Lovenox (enoxaparin) 1 mg/kg Route: Sub-Q; Site: right lower abdomen; vg1 15:53 Follow up: Response: No adverse reaction vg1 15:50 Drug: Zofran (Ondansetron) 4 mg Route: IVP; Site: right antecubital; vg1 17:32 Follow up: Response: No adverse reaction vg1 15:52 Drug: Demerol (meperidine) 25 mg {Note: rass 0.} Route: IVP; Site: right antecubital; vg1 17:31 Follow up: Response: No adverse reaction; Pain is unchanged, physician notified vg1 18:03 Drug: morphine 4 mg {Note: rass 0.} Route: IVP; Site: right antecubital; vg1 12/01 16:25 Follow up: Response: No adverse reaction 1 Outcome: 11/30 14:45 Decision to Hospitalize by Provider. rn 19:23 Admitted to ER Hold. Please see [facility] for further documentation. vg1 19:23 Condition: stable 19:23 Instructed on the need for admit. 12/01 16:24 Patient left the ED. ll1 Signatures: Dispatcher [employer] Adrianne Segura Chandrika Johnson, RN Jose M Guthrie MD MD rn Garcia, Victoria, RN RN vg1 Sonya Patterson RN RN ll1 Corrections: (The following items were deleted from the chart) 11/30 14:59 13:30 Inserted saline lock: 22 gauge in left antecubital area, using aseptic technique. vg1 ,using aseptic technique. Completed by Celena [employer] vg1
--- NOTE | 2020-11-30 14:46 | EDPHYS ---
Physician Documentation [facility] Name: Louis Alvares Age: 55 yrs Sex: Male : 1965 Arrival Date: 11/30/2020 Time: 11:44 Bed 13 Private MD: ED Physician Jose M Estrada HPI: 11/30 12:44 This 55 yrs old Male presents to ER via Ambulatory with complaints of Leg rn Swelling, leg pain. 12:44 The patient presents with pain, that is acute. The complaints affect the Entire left rn leg. Onset: The symptoms/episode began/occurred yesterday. Modifying factors: The symptoms are alleviated by nothing. the symptoms are aggravated by movement. Associated signs and symptoms: Pertinent positives: swelling, Pertinent negatives fever, warmth, weakness. Severity of symptoms: At their worst the symptoms were moderate, in the emergency department the symptoms are unchanged. The patient has not experienced similar symptoms in the past. The patient has not recently seen a physician. Patient reports approximately 24 hours ago noticed left leg swelling and pain, intermittent, worse with movement. No injury. No fever. No history of DVT or PE. No recent surgery.. Historical: - Allergies: 12:15 No Known Allergies; iw - Home Meds: 12:15 None [Active]; iw - PMHx: 12:15 High Cholesterol; Hypertension; MS; iw - PSHx: 12:15 Appendectomy; Abdominal abcess; iw - Immunization history:: Adult Immunizations up to date. - Family history:: not pertinent. - Social history:: Smoking status: unknown. - Hospitalizations: : No recent hospitalization is reported. ROS: 12:44 Constitutional: Negative for fever, chills, and weight loss, Eyes: Negative for injury, rn pain, redness, and discharge, Neck: Negative for injury, pain, and swelling, Cardiovascular: Negative for chest pain, palpitations, and edema, Respiratory: Negative for shortness of breath, cough, wheezing, and pleuritic chest pain, Abdomen/GI: Negative for abdominal pain, nausea, vomiting, diarrhea, and constipation, Back: Negative for injury and pain, MS/Extremity: Left leg swelling and pain Skin: Negative for injury Neuro: Negative for headache, weakness, numbness, tingling, and seizure. 12:44 All other systems are negative. Exam: 12:44 Constitutional: This is a well developed, well nourished patient who is awake, alert, rn and in no acute distress. Head/Face: Normocephalic, atraumatic. Eyes: Pupils equal round and reactive to light, extra-ocular motions intact. Lids and lashes normal. Conjunctiva and sclera are non-icteric and not injected. Cornea within normal limits. Periorbital areas with no swelling, redness, or edema. Cardiovascular: Regular rate and rhythm. No pulse deficits. Respiratory: No increased work of breathing, no retractions or nasal flaring. Abdomen/GI: Soft, non-tender Skin: Warm, mottled left lower extremity MS/ Extremity: Slightly diminished but present pulses left lower extremity. Left lower extremity with increased circumference compared to right lower extremity and nonpitting edema. Entire leg affected from the groin down to the foot Neuro: Awake and alert, GCS 15 13:27 ECG was reviewed by the Attending Physician. rn Vital Signs: 12:15 Temp 97.9(TE); Weight 83.91 kg; Height 5 ft. 5 in. (165.10 cm); iw 13:00 BP 112 / 84; Pulse 90; Resp 16; Pulse Ox 100% ; vg1 14:50 BP 110 / 61; Pulse 84; Resp 16; Pulse Ox 100% ; vg1 15:30 BP 117 / 84; Pulse 86; Resp 12; Pulse Ox 100% ; vg1 16:00 BP 97 / 70; Pulse 72; Resp 14; Pulse Ox 99% ; vg1 17:00 BP 98 / 71; Pulse 86; Resp 14; Pulse Ox 100% ; vg1 12:15 Body Mass Index 30.79 (83.91 kg, 165.10 cm) iw MDM: 12:12 Patient medically screened. rn 14:43 Differential diagnosis: DVT, proximal DVT, arterial insufficiency. Data reviewed: vital rn signs, nurses notes, lab test result(s), EKG, radiologic studies, CT scan, doppler, and as a result, I will admit patient. Data interpreted: monitoring coordinator: rate is 90 beats/min, rhythm is normal sinus rhythm, regular, with no ectopy, Interpretation: normal rate, normal rhythm, Pulse oximetry: on room air is 100 %. Interpretation: normal. Counseling: I had a detailed discussion with the patient and/or guardian regarding: the historical points, exam findings, and any diagnostic results supporting the discharge/admit diagnosis, lab results, radiology results, the need for further work-up and treatment in the hospital. Admission orders: after a detailed discussion of the patient's condition and case, the admit orders are written by me. ED course: Patient with proximal left lower extremity DVT. Lovenox ordered. CT aorta shows cecal thickening concerning for cancer, which would explain propensity to clot. Will admit to Dr. Figueroa for anticoagulation and further work-up with GI consultation.. 11/30 12:20 Order name: CBC with Diff; Complete Time: 14:24 rn 11/30 12:20 Order name: Basic Metabolic Panel; Complete Time: 14: rn 11/30 12:20 Order name: Protime (+inr); Complete Time: 14:24 rn 11/30 12:20 Order name: Ptt, Activated; Complete Time: 14:24 rn 11/30 15:02 Order name: CREATININE WHOLE BLOOD EDME 11/30 12:20 Order name: Extremity Venous Uni Ltd US; Complete Time: 15:27 rn 11/30 12:20 Order name: Lower Extremity Artery Uni Ltd US; Complete Time: 15:27 rn 11/30 12:21 Order name: CT Aorta for Dissection; Complete Time: 14: rn 11/30 16:51 Order name: SARS-COV-2 RT PCR EDMS 11/30 17:39 Order name: Comprehensive Metabolic Panel EDMS 11/30 17:39 Order name: Comprehensive Metabolic Panel EDMS 11/30 17:39 Order name: CBC with Automated Diff EDMS 11/30 17:39 Order name: CBC with Automated Diff EDMS 11/30 12:20 Order name: IV Start; Complete Time: 13:30 rn 11/30 12:20 Order name: Cardiac monitoring; Complete Time: 13:24 rn 11/30 12:20 Order name: O2 Sat Monitoring; Complete Time: 13:24 rn 11/30 17:39 Order name: Full Liquid EDMS EC:27 Rate is 83 beats/min. Rhythm is regular. Left axis deviation noted. QRS is positive in rn lead I and negative in lead aVF. CA interval is normal. QRS interval is normal. QT interval is normal. No Q waves. T waves are Normal. No ST changes noted. Clinical impression: NSR with LAD. Interpreted by me. Reviewed by me. Administered Medications: 15:00 Drug: Lovenox (enoxaparin) 1 mg/kg Route: Sub-Q; Site: right lower abdomen; vg1 15:53 Follow up: Response: No adverse reaction vg1 15:50 Drug: Zofran (Ondansetron) 4 mg Route: IVP; Site: right antecubital; vg1 17:32 Follow up: Response: No adverse reaction vg1 15:52 Drug: Demerol (meperidine) 25 mg {Note: rass 0.} Route: IVP; Site: right antecubital; vg1 17:31 Follow up: Response: No adverse reaction; Pain is unchanged, physician notified vg1 18:03 Drug: morphine 4 mg {Note: rass 0.} Route: IVP; Site: right antecubital; 1 12/01 16:25 Follow up: Response: No adverse reaction ll1 Disposition Summary: 11/30/20 14:45 Hospitalization Ordered Hospitalization Status: Inpatient Admission rn Provider: Ricardo Gonzalez rn Condition: Stable rn Problem: new rn Symptoms: are unchanged rn Bed/Room Type: Standard rn Location: [facility] ER HOLD(12/01/20 11:27) Room Assignment: ERHOLD-(12/01/20 11:27) Diagnosis - Acute embolism and thrombosis of other specified deep vein of left lower extremity rn - Possible colon cancer rn Forms: - Medication Reconciliation Form rn - SBAR form rn Signatures: Dispatcher [employer] EDChandrika Angulo RN [place] Jose M Estrada MD MD rn Garcia, Cindy RN [place] Tyler Wolf RN RN Kathy Brar RN RN 1 Sonya Patterson, RN RN ll1 Corrections: (The following items were deleted from the chart) 11/30 15:46 15:16 CORONAVIRUS+MR.LAB.BRZ ordered. EDME EDMS 21:22 14:45 Telemetry/MedSurg (Inpatient) [facility] 21:22 14:45 rn mark 12/01 09:47 08/09 21:22 [facility] ER HOLD [facility] 12/01 09:47 08 21:22 ERHOLD- [facility] 12/01 11:27 09:47 Telemetry/MedSurg (Inpatient) [facility] iw 11:27 09:47 218 ja1 iw
[2020-11-30] MEDS ORDERED: ENOXAPARIN 80 MG/0.8 ML SQ ONE (15:14)
--- NOTE | 2020-11-30 15:23 | RAD REPORT ---
EXAM DESCRIPTION: US - Lower Extremity Artery Uni Ltd - 11/30/2020 2:22 pm CLINICAL HISTORY: Leg pain COMPARISON: None FINDINGS: Normal triphasic and biphasisc waveforms are present within the superficial femoral artery , popliteal artery, and posterior tibial artery. DIRECTOR OF STRATEGIC SOURCING: 84 cm/s Proximal SFA: 113 cm/s Mid SFA: 63.6 cm/s Popliteal artery: 44.7 cm/s Posterior tibial artery: 32 cm/s IMPRESSION: Normal right lower extremity arterial ultrasound.
--- NOTE | 2020-11-30 15:25 | RAD REPORT ---
EXAM DESCRIPTION: US - Extremity Venous Uni Ltd - 11/30/2020 2:14 pm CLINICAL HISTORY: Swelling COMPARISON: None. TECHNIQUE: Real-time sonographic evaluation of the left lower extremity deep venous system was perfo rmed. FINDINGS: The left common femoral rain, greater saphenous vein, popliteal vein, posterior tibial vei n are noncompressible and lack flow. IMPRESSION: Positive for deep venous thrombosis involving all of the evaluated veins in the left low er extremity.
[2020-11-30] MEDS ORDERED: MEPERIDINE HCL 25 MG/ML SYR ONE (16:07)
[2020-11-30] MEDS ORDERED: ONDANSETRON 4 MG/2 ML VIAL ONE (16:08)
[2020-11-30] MEDS ORDERED: ONDANSETRON 4 MG/2 ML VIAL IV PRN (17:36)
[2020-11-30] MEDS ORDERED: ACETAMINOPHEN 500 MG TAB PO PRN (17:36)
[2020-11-30] MEDS ORDERED: MORPHINE 2 MG/ML SYR IV PRN (17:36)
[2020-11-30] MEDS ORDERED: Levofloxacin500mg IV 500 MG/100 ML BAG IV SCH (18:00)
[2020-11-30] MEDS ORDERED: NA CHLORIDE 0.9% 1,000 ML IV SCH (18:00)
[2020-11-30] MEDS ORDERED: MORPHINE 4 MG/ML SYR ONE (18:22)
[2020-11-30 18:55] VITALS: BMI 30.7
[2020-11-30] MEDS: APIXABAN 5 MG TABLET PO SCH (21:00)
[2020-11-30] MEDS ORDERED: NA CHLORIDE 0.9% 1,000 ML ONE (21:03)
[2020-11-30] MEDS ORDERED: Levofloxacin500mg IV 500 MG/100 ML BAG IV ONE (21:03)
[2020-11-30] MEDS ORDERED: APIXABAN 5 MG TABLET ONE (21:42)
[2020-12-01] MEDS: METRONIDAZOLE 500mg IVPB 500 MG/100 ML BAG IV SCH ×2 (01:00→08:59)
[2020-12-01] MEDS ORDERED: METRONIDAZOLE 500mg IVPB 500 MG/100 ML BAG IV ONE ×2 (01:30→08:04)
[2020-12-01 05:15] LABS: Absolute Lymphocytes (CBC) 1.3 K/uL (0.7-4.9); Basophils % 0.7 % (0-1.3); Hematocrit 38.8 % (39.6-49.0); Lymphocytes % 12.2 % (15.3-44.8); MPV 7.5 fL (7.6-11.3); RBC Red Blood Cell Count 4.68 M/uL (4.33-5.43)
[2020-12-01 05:38] LABS: ALT/SGPT 14 U/L (12-78); AST/SGOT 18 U/L (15-37); Albumin 3.1 g/dL (3.4-5.0); Alkaline Phosphatase 106 U/L (45-117); BUN Blood Urea Nitrogen 16 mg/dL (7-18); Bicarbonate 28 mmol/L (21-32); Bilirubin Total 0.6 mg/dL (0.2-1.0); Glucose Level 84 mg/dL (74-106); Potassium 4.2 mmol/L (3.5-5.1); Protein, Total 8.8 g/dL (6.4-8.2); Sodium Level 135 mmol/L (136-145)
[2020-12-01] MEDS ORDERED: APIXABAN 5 MG TABLET ONE (08:04)
[2020-12-01] MEDS ORDERED: NA CHLORIDE 0.9% 1,000 ML ONE (08:04)
[2020-12-01] MEDS: APIXABAN 5 MG TABLET PO SCH (08:59)
[2020-12-01] MEDS ORDERED: MORPHINE 2 MG/ML SYR ONE (16:16)
[2020-12-01] MEDS ORDERED: ONDANSETRON 4 MG/2 ML VIAL ONE (16:16)
[2020-12-01 16:20] VITALS: BP 115/93; TEMP 97.5
[2020-12-01 16:36] VITALS: O2SAT 100
--- NOTE | 2020-12-01 19:47 | CON ---
Reason For Consultation: Abnormal CAT scan. History Of Presenting Illness: The patient is a 55-year-old gentleman, who recently 2 months ago, cano d acute appendicitis and had surgery done. Subsequently developed a pelvic abscess. Also, has had t wo recent CAT scans, now came to the hospital because of the swelling of the legs and leg pain, also complained of some chest pain, found to have acute DVT. CT also revealed suspicious finding in the c ecum. Therefore, was admitted. He has been started on anticoagulation and already being feels well, being prepared for discharge. Allergies: NO KNOWN DRUG ALLERGIES. Home Medications: None. Past Medical History: Dyslipidemia, high cholesterol. Past Surgical History: Appendectomy and history of abdominal abscess. Family History: Noncontributory. Social History: Denies toxic habits. Review of Systems: GI: As in HPI, otherwise, negative. Vascular: As in HPI, otherwise, negative. Remainder of 10-point review of system is negative. Laboratory Data: Reviewed. White count was initially 15, now improved. He is on antibiotics. Chem istry panel also reviewed. CT findings on this exam show thickening of the cecum with mesenteric and omental nodularity suspicious of adenocarcinoma. Impression: 55-year-old gentleman with recent appendicitis and subsequently after surgery developed a pelvic abscess, now came to the hospital with deep vein thrombosis and CT revealed suspicious mass like appearance of the cecum. This CT finding does not coincide with the prior to dedicated abdomina l CAT scan findings, so I would not assume it to be cancer, however, definitely workup needs to be do ne. Plan: Continue current management. Going to start on broad-spectrum antibiotics. The patient will need anticoagulation. We will also schedule him for a colonoscopy on an outpatient basis for further evaluation of this cecal abnormality. US/MODL Voice ID: [id number] Report ID: [id number]
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
--- NOTE | 2020-12-07 08:01 | P.DS ---
Discharge Date: 12/01/20 Disposition: ROUTINE DISCHARGE Discharge Condition: GOOD Reason for Admission: Left lower extremity DVT - Problems (1) Left leg DVT Status: Acute (2) Cecal lesion Status: Acute (3) History of hypertension Status: Acute (4) Pneumonia due to COVID-19 virus Status: Acute Brief History of Present Illness: Patient is a 55-year-old gentleman who came into the hospital with pain in the left leg. Patient had a Doppler which revealed an extensive left lower extremity DVT. Patient denies any chest pain or shortness of breath. He mainly has the pain in his left lower extremity. Patient has had surgery and questionable cecal lesion was identified on CT scan. Patient will be admitted for further evaluation. Will start him on anticoagulation at this time. Patient was given Lovenox and will start Eliquis this evening. Hospital Course: Patient is clinically doing well. Patient clinical symptoms are improving. Patient was advised to monitor the left leg for swelling as well as for any chest pain or shortness of breath. I gave her my #2 contact me if any questions. He is to follow up with gastroenterology and PCP. Plan a discharge with outpatient followup. Vital Signs/Physical Exam: Temp Pulse Resp BP Pulse Ox 97.5 F 74 17 115/93 H 98 12/07/20 07:59 12/07/20 07:59 12/07/20 07:59 12/07/20 07:59 12/07/20 07:59 General: Alert, In no apparent distress, Oriented x3 Laboratory Data at Discharge: WBC 10.60 K/uL (4.3-10.9) D 12/01/20 05:02 Hgb 12.6 g/dL (13.6-17.9) L 12/01/20 05:02 Hct 38.8 % (39.6-49.0) L 12/01/20 05:02 Plt Count 255 K/uL (152-406) D 12/01/20 05:02 PT 12.2 SECONDS (9.5-12.5) 11/30/20 13:20 INR 1.06 11/30/20 13:20 APTT 18.4 SECONDS (24.3-36.9) L 11/30/20 13:20 Sodium 135 mmol/L (136-145) L 12/01/20 05:02 Potassium 4.2 mmol/L (3.5-5.1) 12/01/20 05:02 BUN 16 mg/dL (7-18) 12/01/20 05:02 Creatinine 0.81 mg/dL (0.55-1.3) 12/01/20 05:02 Glucose 84 mg/dL (74-106) 12/01/20 05:02 Total Bilirubin 0.6 mg/dL (0.2-1.0) 12/01/20 05:02 AST 18 U/L (15-37) 12/01/20 05:02 ALT 14 U/L (12-78) 12/01/20 05:02 Alkaline Phosphatase 106 U/L (45-117) 12/01/20 05:02 Home Medications: Apixaban [Eliquis] 0 mg PO BID 12/01/20 Cefdinir [Omnicef] 0 mg PO BID 12/01/20 Docusate [Colace Cap*] 0 mg PO DAILY 12/01/20 metroNIDAZOLE [Flagyl*] 0 mg PO Q8H 12/01/20 Physician Discharge Instructions: OK TO DC IV AND DC HOME FOLLOW-UP WITH PCP IN 1-2 WEEKS CALL ME AT [phone] IF ANY QUESTIONS REGARDING HOSPITAL STAY RETURN TO THE ER IF SYMPTOMS WORSENS GI FOLLOW-UP FOR COLONOSCOPY EVALUATION-DR. CARRILLO; PLEASE GIVE HIS INFORMATION Diet: AHA Activity: Fall precautions Followup: Zheng Wilkes MD [Primary Care Provider] - Time spent managing pt's care (in minutes): 35
== END 2020-12-01 16:24 | disposition home or self-care (01) ==
LOC: ER 11:16 → ERHOLD 17:37
PROVIDERS: ADMIT Hospitalist; ATTEND Hospitalist
DX: I82.402 Acute embolism and thrombosis of unspecified deep veins of left lower extremity (principal); K63.9 Disease of intestine, unspecified; I10 Essential (primary) hypertension; I25.2 Old myocardial infarction; E78.00 Pure hypercholesterolemia, unspecified; Z20.822 Contact with and (suspected) exposure to COVID-19; Z86.16 Personal history of COVID-19; Z95.5 Presence of coronary angioplasty implant and graft; Z87.891 Personal history of nicotine dependence; Z85.9 Personal history of malignant neoplasm, unspecified; Z83.3 Family history of diabetes mellitus; Z82.49 Family history of ischemic heart disease and other diseases of the circulatory system
CPT/HCPCS: G0378 ×3; 36415; 71275; 74175; 80048; 80053; 82565; 85025; 85610; 85730; 93926; 93971; 96372; 96374; 96375; 99285; J2175; J2270; J2405; J7030; Q9967; U0003

== ENCOUNTER 2020-12-01 16:55 | Inpatient (IN) | payer BC ==
[2020-12-01 18:02] LABS: Absolute Lymphocytes (CBC) 1.2 K/uL (0.7-4.9); Basophils % 0.4 % (0-1.3); Hematocrit 35.8 % (39.6-49.0); Lymphocytes % 9.2 % (15.3-44.8); MPV 7.4 fL (7.6-11.3); RBC Red Blood Cell Count 4.35 M/uL (4.33-5.43)
[2020-12-01 18:11] LABS: Protime INR 1.48
--- NOTE | 2020-12-01 18:23 | RAD REPORT ---
EXAM DESCRIPTION: CT - Chest For Pe Angio - 12/01/2020 6:11 pm CLINICAL HISTORY: Chest pain. Chest pain;Dyspnea COMPARISON: Chest For Pe Angio dated 06/05/2020 TECHNIQUE: CT angiogram of the pulmonary arteries was performed with MIP. All CT scans are performed using dose optimization technique as appropriate and may include automated exposure control or mA/KV adjustment according to patient size. FINDINGS: Bilateral pulmonary thromboembolism is seen, greatest clot burden in the left mainstem pul monary artery. A mild RV strain pattern is present. No acute aortic finding demonstrated. The lungs are mildly emphysematous but clear. No significant pericardial or pleural fluid. No concerning bony finding. IMPRESSION: Moderate bilateral pulmonary thromboembolism is seen with mild RV strain pattern. Mild emphysema.
[2020-12-01 18:32] LABS: BUN Blood Urea Nitrogen 15 mg/dL (7-18); Bicarbonate 25 mmol/L (21-32); Glucose Level 123 mg/dL (74-106); Potassium 4.1 mmol/L (3.5-5.1); Sodium Level 134 mmol/L (136-145); Troponin (Emerg Dept Use Only) 0.19 ng/mL (0.0-0.045)
[2020-12-01] MEDS ORDERED: ONDANSETRON 4 MG/2 ML VIAL IV PRN (18:37)
[2020-12-01] MEDS ORDERED: ACETAMINOPHEN 500 MG TAB PO PRN (18:37)
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
--- NOTE | 2020-12-01 18:44 | ER ---
Nurse's Notes [facility] Name: Louis Alvares Age: 55 yrs Sex: Male : 1965 Arrival Date: 12/01/2020 Time: 16:57 Bed 13 Private MD: Diagnosis: Other pulmonary embolism with acute cor pulmonale;Hypoxemia;Chest pain, unspecified Presentation: 12/01 17:03 Chief complaint: Friend and/or Co-Worker states: Friend stated, " I was driving him kg home and then all the sudden he leaned back and his eyes where going in the back of his head and he couldn't breath." Pt was just discharged less then 30 mins ago. Coronavirus screen: Client denies travel out of the [place] in the last 14 days. At this time, unable to obtain information related to travel outside the [place] At this time, the client does not indicate any symptoms associated with coronavirus-19. Ebola Screen: Patient negative for fever greater than or equal to 101.5 degrees Fahrenheit, and additional compatible Ebola Virus Disease symptoms Patient denies exposure to infectious person. Patient denies travel to an Ebola-affected area in the 21 days before illness onset. Initial Sepsis Screen: Does the patient meet any 2 criteria? No. Patient's initial sepsis screen is negative. Does the patient have a suspected source of infection? No. Patient's initial sepsis screen is negative. Risk Assessment: Do you want to hurt yourself or someone else? Patient reports no desire to harm self or others. Onset of symptoms was December 01, 2020 at 14:30. 17:03 Method Of Arrival: Wheelchair kg 17:03 Acuity: DELPHINE 2 kg Triage Assessment: 17:05 General: Appears distressed, Behavior is calm, cooperative, appropriate for age, quiet, kg Pt very pale and diaphoretic . Pain: Complains of pain in chest. Historical: - Allergies: 17:05 No Known Allergies; kg - PMHx: 17:05 High Cholesterol; Hypertension; WI; DVT; kg - PSHx: 17:05 Abdominal abcess; Appendectomy; kg - Family history:: not pertinent. - Hospitalizations: : The patient was recently seen at [facility]. Screenin:07 Abuse screen: Denies threats or abuse. Denies injuries from another. Nutritional kg screening: No deficits noted. Tuberculosis screening: No symptoms or risk factors identified. Fall Risk None identified. Assessment: 17:05 General: Appears in no apparent distress. uncomfortable, Behavior is calm, cooperative. vg1 Pain: Complains of pain in mid-sternal area Pain currently is 8 out of 10 on a pain scale. Quality of pain is described as pressure, Pain began 30 min ago. Noted to be grimacing. Neuro: Level of Consciousness is awake, alert, obeys commands, Oriented to person, place, time, situation. Cardiovascular: Patient's skin is warm and dry. Respiratory: Airway is patent Respiratory effort is even, unlabored, Respiratory pattern is tachypnea. GI: No signs and/or symptoms were reported involving the gastrointestinal system. : No signs and/or symptoms were reported regarding the genitourinary system. EENT: No signs and/or symptoms were reported regarding the EENT system. Derm: Skin is intact, Skin is pale, Skin temperature is cool. Musculoskeletal: Circulation, motion, and sensation intact. 18:20 Reassessment: Patient appears in no apparent distress at this time. No changes from vg1 previously documented assessment. Patient and/or family updated on plan of care and expected duration. Pain level reassessed. Patient is alert, oriented x 3, equal unlabored respirations, skin warm/dry/pink. 20:39 Reassessment: Pt began tPA at 1850 has completed the medication at 2034. Pt denies any vg1 chest pain at this time. Please refer to IV TPA vital sign flowsheet for vitals. General: Appears in no apparent distress. comfortable. Neuro: Level of Consciousness is awake, alert, obeys commands, Oriented to person, place, time, situation. Respiratory: Airway is patent Respiratory effort is even, unlabored, Breath sounds are clear bilaterally. 20:39 Derm: Skin is intact, Skin is pink, warm \\T\\ dry. vg1 Vital Signs: 17:00 BP 107 / 82; Pulse 104; Resp 24; Pulse Ox 100% on 2 lpm NC; vg1 17:02 BP 98 / 72; Pulse 111; Resp 18; Temp 97.7(TE); Pulse Ox 96% on 4 lpm NC; Weight 83.91 kg kg (R); Height 5 ft. 5 in. (165.10 cm); Pain 8/10; 18:20 BP 103 / 84; Pulse 105; Resp 18; Pulse Ox 100% on 2 lpm NC; vg1 20:35 BP 103 / 76; Pulse 94; Resp 18; Pulse Ox 100% on 2 lpm NC; vg1 17:02 Body Mass Index 30.79 (83.91 kg, 165.10 cm) kg ED Course: 16:57 Patient arrived in ED. ds1 17:00 Jose M Estrada MD is Attending Physician. rn 17:02 Arm band placed on right wrist. kg 17:05 Triage completed. kg 17:06 Kathy Alvares RN is Primary Nurse. vg1 17:07 Patient has correct armband on for positive identification. kg 17:38 Bed in low position. Call light in reach. Side rails up X 1. Adult w/ patient. Cardiac mh5 monitor on. Pulse ox on. NIBP on. 17:38 Missed attempt(s): 22 gauge in left antecubital area. mh5 17:39 EKG done, by ED staff, reviewed by Jose M Estrada MD. mh5 18:00 Inserted saline lock: 22 gauge in right forearm, using aseptic technique. Blood ll1 collected. 18:00 Missed attempt(s): 22 gauge in right antecubital area. Bleeding controlled, band aid ll1 applied, catheter tip intact. 18:11 CT Chest For PE Angio In Process Unspecified. EDMS 18:43 Ricardo Gonzalez MD is Hospitalizing Provider. rn 21:56 Report given to Li SAAB. vg1 Administered Medications: 18:21 Drug: NS 0.9% 1000 ml Route: IV; Rate: 1000 ml; Site: right forearm; vg1 18:30 Follow up: IV Status: Completed infusion; IV Intake: 1000ml vg1 18:25 Not Given (Duplicate Order): Heparin (DVT/PE Drip) 18 units/kg/hr - (HEParin 65051 rn units, D5W 500 ml) IV at calculated rate Per protocol; Max initial rate 1800 units/hr 18:49 Drug: Alteplase 100 mg Route: IV; Rate: calculated rate; Site: right forearm; vg1 20:35 Follow up: IV Status: Completed infusion; IV Intake: 100ml vg1 Intake: 18:30 IV: 1000ml; Total: 1000ml. vg1 20:35 IV: 100ml; Total: 1100ml. vg1 Outcome: 18:44 Decision to Hospitalize by Provider. rn 12/02 20:46 Patient left the ED. lp1 Signatures: Dispatcher [employer] ED Yaritza Espino ds1 Jose M Estrada MD MD rn Pena, Laura, RN RN lp1 Zakia Mcconnell 5 Kathy Alvares RN RN vg1 Sonya Patterson RN RN ll1 Narcisa Patel RN RN kg Corrections: (The following items were deleted from the chart) 12/01 20:53 17:05 Derm: Skin is intact, Skin temperature is cool vg1 vg1 20:53 20:39 Respiratory: Airway is patent Respiratory effort is even, unlabored, Breath vg1 sounds are clear bilaterally. vg1
--- NOTE | 2020-12-01 18:44 | EDPHYS ---
Physician Documentation [facility] Name: Louis Alvares Age: 55 yrs Sex: Male : 1965 Arrival Date: 12/01/2020 Time: 16:57 Bed 13 Private MD: ED Physician Jose M Estrada HPI: 12/01 17:03 This 55 yrs old Male presents to ER via Unassigned with complaints of Chest rn pain and shortness of breath. 17:03 The patient has shortness of breath at rest. Onset: The symptoms/episode began/occurred rn just prior to arrival. Duration: The symptoms are continuous, but are steadily getting better. The patient's shortness of breath is aggravated by nothing, is alleviated by nothing. Associated signs and symptoms: Pertinent positives: chest pain, Pertinent negatives: fever, hemoptysis. Severity of symptoms: At their worst the symptoms were moderate in the emergency department the symptoms have improved. The patient has not experienced similar symptoms in the past. The patient has been recently seen at the [facility] Emergency Department, The patient has been recently been admitted at [facility]. Patient just discharged from hospital, was admitted for DVT of left leg, returns because on way home felt chest pain and shortness of breath. Driven back to the hospital and signed back in. States feels slightly better but still having chest pain and shortness of breath.. Historical: - Allergies: 17:05 No Known Allergies; kg - PMHx: 17:05 High Cholesterol; Hypertension; TN; DVT; kg - PSHx: 17:05 Abdominal abcess; Appendectomy; kg - Family history:: not pertinent. - Hospitalizations: : The patient was recently seen at [facility]. ROS: 17:03 Constitutional: Negative for fever, chills, and weight loss, Eyes: Negative for injury, rn pain, redness, and discharge, Neck: Negative for injury, pain, and swelling, Cardiovascular: Negative for palpitations, and edema, Respiratory: Negative for cough, wheezing Abdomen/GI: Negative for abdominal pain, nausea, vomiting, diarrhea, and constipation, Back: Negative for injury and pain, : Negative for injury, bleeding, discharge, and swelling, MS/Extremity: Negative for injury and deformity, Skin: Negative for injury, rash, and discoloration, Neuro: Negative for headache, weakness, numbness, tingling, and seizure. 17:03 All other systems are negative. Exam: 17:03 Constitutional: This is a well developed, well nourished patient who is awake, alert, rn anxious appearing Head/Face: Normocephalic, atraumatic. Eyes: Periorbital areas with no swelling, redness, or edema. ENT: No stridor Cardiovascular: Tachycardic, regular Respiratory: Mild tachypnea, no retractions Abdomen/GI: Soft, non-tender Skin: Warm, dry MS/ Extremity: Pulses equal, no cyanosis. Neuro: Awake and alert, GCS 15, oriented to person, place, time, and situation. Cranial nerves II-XII grossly intact. Motor strength 5/5 in all extremities. Sensory grossly intact. Cerebellar exam normal. 18:57 ECG was reviewed by the Attending Physician. rn Vital Signs: 17:00 BP 107 / 82; Pulse 104; Resp 24; Pulse Ox 100% on 2 lpm NC; vg1 17:02 BP 98 / 72; Pulse 111; Resp 18; Temp 97.7(TE); Pulse Ox 96% on 4 lpm NC; Weight 83.91 kg kg (R); Height 5 ft. 5 in. (165.10 cm); Pain 8/10; 18:20 BP 103 / 84; Pulse 105; Resp 18; Pulse Ox 100% on 2 lpm NC; vg1 20:35 BP 103 / 76; Pulse 94; Resp 18; Pulse Ox 100% on 2 lpm NC; vg1 17:02 Body Mass Index 30.79 (83.91 kg, 165.10 cm) kg MDM: 17:00 Patient medically screened. rn 17:09 ED course: Patient also states that 30 minutes prior to discharge was given morphine, rn states felt okay after the injection, no itching or rash, has had before without reaction. 18:28 ED course: Consulted with Dr. Soriano regarding bilateral pulmonary embolism with rn large left main pulmonary artery thrombus and signs of RV strain. States given patient with relative hypotension and hypoxia in sudden onset of symptoms an hour to 2 prior to arrival, recommends TPA administration 100 mg over 2 hours.. 18:40 Differential diagnosis: Myocardial Infarction Pneumothorax Psychogenic pulmonary edema, rn Pulmonary Embolism. Data reviewed: vital signs, nurses notes, lab test result(s), EKG, radiologic studies, CT scan, and as a result, I will admit patient. Data interpreted: quality assurance monitor final: rate is 105 beats/min, rhythm is sinus tachycardia, with no ectopy, Interpretation: tachycardia, Pulse oximetry: on room air is 88 %. Interpretation: hypoxia. Plan: O2 by NC applied. Test interpretation: by ED physician or midlevel provider: CT chest shows large clot left pulmonary artery and smaller clots right segmental pulmonary arteries. Counseling: I had a detailed discussion with the patient and/or guardian regarding: the historical points, exam findings, and any diagnostic results supporting the discharge/admit diagnosis, lab results, radiology results, the need for further work-up and treatment in the hospital. Admission orders: after a detailed discussion of the patient's condition and case, the admit orders are written by me. ED course: Patient consented for TPA administration, TPA in room being drawn up and mixed. Admitted to ICU under Dr. Gonzalez.. 12/01 17:02 Order name: CBC with Diff; Complete Time: 18:03 rn 12/01 17:02 Order name: Basic Metabolic Panel; Complete Time: 18:33 rn 12/01 17:02 Order name: Protime (+inr); Complete Time: 18:20 rn 12/01 17:02 Order name: Ptt, Activated; Complete Time: 18:20 rn 12/01 17:06 Order name: Troponin (emerg Dept Use Only); Complete Time: 18:33 rn 12/01 18:41 Order name: Comprehensive Metabolic Panel EDNJ 12/01 18:41 Order name: Comprehensive Metabolic Panel EDNJ 12/01 18:41 Order name: Lactate EDMS 12/01 18:41 Order name: Lactate EDMS 12/01 18:41 Order name: Lipid Profile EDMS 12/01 18:41 Order name: Lipid Profile EDMS 12/01 18:41 Order name: Magnesium EDMS 12/01 18:41 Order name: Magnesium EDMS 12/01 18:41 Order name: NT PRO-BNP EDNJ 12/01 17:01 Order name: CT Chest For PE Angio; Complete Time: 18:25 rn 12/01 18:41 Order name: NT PRO-BNP EDMS 12/01 18:41 Order name: Phosphorus EDMS 12/01 18:41 Order name: Phosphorus EDMS 12/01 18:41 Order name: Protime (+INR) EDMS 12/01 18:41 Order name: Protime (+INR) EDMS 12/01 18:41 Order name: PTT, Activated Partial Thromb EDMS 12/01 18:41 Order name: PTT, Activated Partial Thromb EDMS 12/01 18:41 Order name: Troponin I EDMS 12/01 18:41 Order name: Troponin I EDMS 12/01 18:41 Order name: Troponin I EDNJ 12/01 18:41 Order name: Echo with Doppler EDMS 12/02 04:39 Order name: CBC with Automated Diff EDMS 12/01 17:01 Order name: IV Start; Complete Time: 18:00 rn 12/01 17:06 Order name: EKG; Complete Time: 17:24 rn 12/01 17:06 Order name: EKG - Nurse/Tech; Complete Time: 17:06 rn 12/01 18:41 Order name: CONS Physician Consult EDMS EC:57 Rate is 99 beats/min. Rhythm is regular. Left axis deviation noted. QRS is positive in rn lead I and negative in lead aVF. QRS interval is prolonged at 142 msec. QT interval is normal. No Q waves. T waves are Normal. No ST changes noted. Clinical impression: NSR w/ Non-specific ST/T Changes and LAD. Interpreted by me. Reviewed by me. Administered Medications: 18:21 Drug: NS 0.9% 1000 ml Route: IV; Rate: 1000 ml; Site: right forearm; vg1 18:30 Follow up: IV Status: Completed infusion; IV Intake: 1000ml vg1 18:25 Not Given (Duplicate Order): Heparin (DVT/PE Drip) 18 units/kg/hr - (HEParin 96286 rn units, D5W 500 ml) IV at calculated rate Per protocol; Max initial rate 1800 units/hr 18:49 Drug: Alteplase 100 mg Route: IV; Rate: calculated rate; Site: right forearm; vg1 20:35 Follow up: IV Status: Completed infusion; IV Intake: 100ml vg1 Disposition: 18:40 Critical Care:. rn Disposition Summary: 12/01/20 18:44 Hospitalization Ordered Hospitalization Status: Inpatient Admission rn Provider: Ricardo Gonzalez rn Condition: Fair rn Problem: new rn Symptoms: are unchanged rn Bed/Room Type: Standard rn Location: [facility] ER HOLD(12/02/20 16:31) bd Room Assignment: ERHOLD-(12/02/20 16:31) bd Diagnosis - Other pulmonary embolism with acute cor pulmonale rn - Hypoxemia rn - Chest pain, unspecified rn Forms: - Medication Reconciliation Form rn - SBAR form learning and development associate time excluding procedures: 18:40 Critical care time: Bedside Care: 30 minutes, Consultation: 5 minutes. Total time: 35 rn minutes Signatures: Dispatcher [employer] EDMS Ashlyn Fleming Natalie, MD MD carolina Salguero, Franci RN RN cg Giorgio, Kathy RN RN vg1 Narcisa Patel RN RN kg Corrections: (The following items were deleted from the chart) 17:09 17:03 Constitutional: This is a well developed, well nourished patient who is awake, rn alert, anxious appearing Head/Face: Normocephalic, atraumatic. rn 20:36 18:44 Intensive Care Unit rn cg 20:36 18:44 rn 12/02 12:11 12/01 20:36 [facility] ER HOLD [facility] 12/02 12:11 08 20:36 ERHOLD- [facility] 12/02 16:31 12:11 Telemetry/MedSurg (Inpatient) bd bd 16:31 12:11 218 bd
[2020-12-01] MEDS ORDERED: ALTEPLASE 100 ML IV ONE (18:59)
[2020-12-01 20:56] VITALS: BMI 30.6
[2020-12-01] MEDS: NA CHLORIDE 0.9% 1,000 ML IV SCH (21:00)
[2020-12-01] MEDS ORDERED: NA CHLORIDE 0.9% 1,000 ML ONE (21:21)
[2020-12-02 04:30] LABS: Absolute Lymphocytes (CBC) 1.4 K/uL (0.7-4.9); Basophils % 0.6 % (0-1.3); Hematocrit 31.6 % (39.6-49.0); Lymphocytes % 14.9 % (15.3-44.8); MPV 7.6 fL (7.6-11.3); RBC Red Blood Cell Count 3.86 M/uL (4.33-5.43)
[2020-12-02 04:33] LABS: Protime INR 1.67
[2020-12-02 05:11] LABS: ALT/SGPT 12 U/L (12-78); AST/SGOT 18 U/L (15-37); Albumin 2.5 g/dL (3.4-5.0); Alkaline Phosphatase 82 U/L (45-117); BUN Blood Urea Nitrogen 13 mg/dL (7-18); Bicarbonate 27 mmol/L (21-32); Bilirubin Total 0.5 mg/dL (0.2-1.0); Glucose Level 87 mg/dL (74-106); HDL Cholesterol 43 mg/dL (40-60); LDL Cholesterol, Calculated 122 (<130); NT PRO-BNP 522 pg/mL (<125); Phosphorus 3.9 mg/dL (2.5-4.9); Potassium 4.1 mmol/L (3.5-5.1); Protein, Total 6.8 g/dL (6.4-8.2); Sodium Level 140 mmol/L (136-145)
[2020-12-02 05:29] LABS: Troponin I 0.88 ng/mL (0.0-0.045)
--- NOTE | 2020-12-02 07:32 | EKG ---
Test Date: 2020-12-01 Test Time: 17:00:07 Program Evaluator: NICOLE MEASUREMENT RESULTS: Intervals: Rate: 99 GA: 130 QRSD: 142 QT: 350 QTc: 449 [place]: P: 58 GA: 130 QRS: -81 T: 53 INTERPRETIVE STATEMENTS: Normal sinus rhythm Left axis deviation Right bundle branch block Abnormal ECG Compared to ECG 11/30/2020 13:12:09 Right bundle-branch block now present Myocardial infarct finding no longer present Electronically Signed On 12-02-20 07:31:06 CDT by Segundo Rivera
[2020-12-02] MEDS ORDERED: NA CHLORIDE 0.9% 1,000 ML ONE (07:49)
[2020-12-02] MEDS: APIXABAN 5 MG TABLET PO SCH ×2 (09:00→20:35)
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
[2020-12-02] MEDS: NA CHLORIDE 0.9% 1,000 ML IV SCH (09:10)
[2020-12-02] MEDS ORDERED: APIXABAN 5 MG TABLET ONE ×2 (09:30→20:54)
--- NOTE | 2020-12-02 13:03 | EKG ---
Test Date: 2020-11-30 Test Time: 13:12:09 [employer]: DIANE MEASUREMENT RESULTS: Intervals: Rate: 83 TX: 126 QRSD: 84 QT: 344 QTc: 404 [place]: P: 30 TX: 126 QRS: -64 T: 66 INTERPRETIVE STATEMENTS: Normal sinus rhythm Left axis deviation Pulmonary disease pattern Septal infarct, age undetermined Abnormal ECG Compared to ECG 06/05/2020 14:28:10 Left-axis deviation now present Right superior axis no longer present Myocardial infarct finding still present Electronically Signed On 12-02-20 12:59:35 CDT by Segundo Rivera
[2020-12-02 13:35] VITALS: TEMP 97.6
--- NOTE | 2020-12-02 13:45 | ECHO ---
HEIGHT: 5 ft 5 in WEIGHT: 184 lb 0 oz DATE OF STUDY: 12/02/[address]: Ricardo Gonzalez MD 2-DIMENSIONAL: YES M.MODE: YES DOPPLER: YES COLOR FLOW: YES TDS: PORTABLE: DEFINITY: BUBBLE STUDY: DIAGNOSIS: PULMONARY EMBOLISM CARDIAC HISTORY: CATHERIZATION: YES SURGERY: NO PROSTHETIC VALVE: NO PACEMAKER: NO MEASUREMENTS (cm) DIASTOLIC (NORMALS) SYSTOLIC (NORMALS) IVSd 1.3 (0.6-1.2) LA Diam 2.4 (1.9-4.0) LVEF 61% LVIDd 2.5 (3.5-5.7) LVIDs 1.7 (2.0-3.5) %FS 31% LVPWd 1.4 (0.6-1.2) Ao Diam 3.1 (2.0-3.7) 2 DIMENSIONAL ASSESSMENT: RIGHT ATRIUM: NORMAL LEFT ATRIUM: NORMAL RIGHT VENTRICLE: NORMAL LEFT VENTRICLE: NORMAL TRICUSPID VALVE: NORMAL MITRAL VALVE: NORMAL PULMONIC VALVE: NORMAL AORTIC VALVE: NORMAL PERICARDIAL EFFUSION: NONE AORTIC ROOT: NORMAL LEFT VENTRICULAR WALL MOTION: NORMAL DOPPLER/COLOR FLOW: MILD TRICUSPID REGURGITATION. NORMAL RIGHT VENTRICULAR SYSTOLIC PRESSURE. COMMENTS: NORMAL LEFT VENTRICULAR FUNCTION. LEFT VENTRICULAR HYPERTROPHY. MILD TRICUSPID REGURGITATION. NORMAL RIGHT VENTRICULAR SYSTOLIC PRESSURE. NO EFFUSION. TECHNOLOGIST: NIKKI MAKI
[2020-12-02 17:24] VITALS: BP 112/71
[2020-12-02 20:40] VITALS: O2SAT 99
--- NOTE | 2020-12-07 09:08 | P.DS ---
Discharge Date: 12/02/20 Disposition: ROUTINE DISCHARGE Discharge Condition: GOOD Reason for Admission: PE - Problems (1) Pulmonary emboli Status: Acute Qualifiers: Acute cor pulmonale presence: with acute cor pulmonale (2) DVT (deep venous thrombosis) Status: Acute (3) Cecal lesion Status: Acute (4) Elevated troponin Status: Acute (5) History of hypertension Status: Acute (6) Hypoxemia Status: Acute Brief History of Present Illness: Patient is a 55yo who returned to the hospital after recently being discharged with the left lower extremity DVT. Patient had a cecal lesion; however, he has had a complicated appendectomy which required abscess drainage. That was in this region as well. GI wants to do an outpatient colonoscopy to see if this is inflammatory or malignancy. I spoke to patient regarding this and he is agreeable to follow-up. Patient was discharged home and wild going home his states that he looked like he passed out. He was having some chest pain and shortness of breath. She brought right back to the emergency room as we had discussed. In the emergency room he was found have a large pulmonary embolism with RV strain, and he was given tPA. Patient was admitted to the intensive care unit for close monitoring. Hospital Course: Patient is doing well clinically. Patient had right heart failure with a large pulmonary embolism. Patient was having PVCs. Patient was given tPA emergently. That evening he started feeling better. The next morning he was much better. We watched for 24 hours after the tPA and he continued to do well. We did have been shortages as we had a large amount of COVID-19 admissions. Spoke with patient and family and advised them that he is stable for discharge to continue with anticoagulation. At this time he is stable for discharge if pulmonary is agreeable. Patient met criteria for inpatient hospitalization. Patient had a saddle embolism with right heart failure and initial RV collapse which was reversed with tPA. Patient had recovered and is doing well. At this time, patient is stable for discharge home. Vital Signs/Physical Exam: Temp Pulse Resp BP Pulse Ox 97.6 F 77 16 112/71 99 12/02/20 16:00 12/02/20 16:00 12/02/20 16:00 12/02/20 16:00 12/02/20 16:00 General: Alert, In no apparent distress, Oriented x3 Laboratory Data at Discharge: WBC 9.70 K/uL (4.3-10.9) D 12/02/20 04:17 Hgb 10.5 g/dL (13.6-17.9) L 12/02/20 04:17 Hct 31.6 % (39.6-49.0) L 12/02/20 04:17 Plt Count 230 K/uL (152-406) 12/02/20 04:17 PT 19.3 SECONDS (9.5-12.5) H 12/02/20 04:17 INR 1.67 12/02/20 04:17 APTT 28.8 SECONDS (24.3-36.9) 12/02/20 04:17 Sodium 140 mmol/L (136-145) 12/02/20 04:17 Potassium 4.1 mmol/L (3.5-5.1) 12/02/20 04:17 BUN 13 mg/dL (7-18) 12/02/20 04:17 Creatinine 0.58 mg/dL (0.55-1.3) 12/02/20 04:17 Glucose 87 mg/dL (74-106) 12/02/20 04:17 Phosphorus 3.9 mg/dL (2.5-4.9) 12/02/20 04:17 Magnesium 2.0 mg/dL (1.8-2.4) 12/02/20 04:17 Total Bilirubin 0.5 mg/dL (0.2-1.0) 12/02/20 04:17 AST 18 U/L (15-37) 12/02/20 04:17 ALT 12 U/L (12-78) 12/02/20 04:17 Alkaline Phosphatase 82 U/L (45-117) 12/02/20 04:17 Troponin I 0.88 ng/mL (0.0-0.045) H* 12/02/20 04:17 Triglycerides 125 mg/dL (<150) 12/02/20 04:17 Cholesterol 190 mg/dL (<200) 12/02/20 04:17 HDL Cholesterol 43 mg/dL (40-60) 12/02/20 04:17 Cholesterol/HDL Ratio 4.42 12/02/20 04:17 Home Medications: Apixaban [Eliquis] 0 mg PO BID 12/01/20 Cefdinir [Omnicef] 0 mg PO BID 12/01/20 Docusate [Colace Cap*] 0 mg PO DAILY 12/01/20 metroNIDAZOLE [Flagyl*] 0 mg PO Q8H 12/01/20 Physician Discharge Instructions: -OK TO DC IV AND DC HOME -FOLLOW-UP WITH PCP IN 1-2 WEEKS -FOLLOW-UP WITH Pulmonary in 1- 2 weeks -PLEASE MAKE SURE ALL DIAGNOSTIC STUDIES ARE AVAILABLE AND HAVE BEEN REVIEWED WITH PATIENT PRIOR TO DISCHARGE -RETURN TO THE ER IF Symptoms worsen -CALL DR. CALLES AT [phone] IF ANY QUESTIONS REGARDING HOSPITAL STAY -PLEASE CALL THE FLOOR AT [phone] IF ANY MEDICATION OR NURSING QUESTIONS Diet: AHA Activity: Fall precautions Followup: OOT,OOT [Primary Care Provider] - Time spent managing pt's care (in minutes): 35
== END 2020-12-02 20:43 | disposition home or self-care (01) | DRG 175 ==
LOC: ER 16:55 → ERHOLD 18:43
PROVIDERS: ADMIT Hospitalist; ATTEND Hospitalist
DX: I26.09 Other pulmonary embolism with acute cor pulmonale (principal); I82.402 Acute embolism and thrombosis of unspecified deep veins of left lower extremity; I10 Essential (primary) hypertension; R09.02 Hypoxemia; R77.8 Other specified abnormalities of plasma proteins; K63.9 Disease of intestine, unspecified
CPT/HCPCS: 36415; 71275; 74175; 80048; 80053; 80061; 82565; 83605; 83735; 83880; 84100; 84484; 85025; 85610; 85730; 93005; 93306; 93926; 93971; 96365; 96366; 96372; 96374; 96375; 99284; 99285; J2175; J2270; J2405; J2997; J7030; Q9967; U0003